=== PATIENT | female | born 1940 | race Caucasian/White ===

== ENCOUNTER 2025-03-10 20:19 | Inpatient (IN) | payer MEDICARE ==
[~2025-03-10] VITALS: Ht 129.5 cm; Wt 62.1 kg
[~2025-03-10 20:19] MED LIST: ATOR40TA71 PO; FERS325 PO; HYDR-4064 PO; LISI20TA24 PO; METO25TA6 PO; PANT40TA54 PO; TRAZ150T79 PO; TROS60CA4 PO
[2025-03-10 20:34] LABS: IMMATURE GRANULOCYTE ABSOLUTE 0.05 K/uL (0-1); NUCLEATED RED BLOOD CELLS 0.0 % (0.0-0.19); PLATELET COUNT (AUTO) 257 K/uL (130-400); RED BLOOD CELL COUNT(AUTO) 3.79 MIL/uL (4.00-5.50); RED CELL DISTRIBUTION WIDTH 12.1 % (11.0-15.5); WHITE BLOOD COUNT (AUTO) 8.3 K/uL (4.8-10.8)
--- NOTE | 2025-03-10 20:40 | ERN ---
ED Note History of Present Illness Stated Complaint: FALL Chief Complaint: Multiple Trauma/Fall Time Seen by MD: 20:22 Dictation: This is an 84-year-old female who apparently was bringing a drink for her and tripped on the chair and had a hard fall on the left side of the head and body onto a pillar. Patient developed a large hematoma of the scalp and temporal area of the face and started feeling dizzy. She stated that there was an indentation in the pillar from the fall. She was complaining of pain on the left side of the head and slight blurriness in the left eye. Patient indicated that she also had laser surgery of the eyes recently Patient is not on any anticoagulation therapy or antiplatelet agents. No loss of consciousness. No other pain or deformities. No facial droop no slurred speech, motor weakness or seizure activity Temperature 98.2 pulse 88 respirations 24 blood pressure 169/116 pulse oximetry 97% on room air Her chronic medical problems include hypertension, hypercholesterolemia, unexplained anemia requiring blood transfusions.(patient indicated that she had extensive workup including capsule endoscopy which did not reveal the source of bleeding.) Trauma alert called-8:22 p.m. Time of patient arrival-8:25 p.m. ED physician involved and time of arrival and evaluation-825 Tier level- 2 [id number] interventions done. Patient just transported by spouse by private vehicle Primary survey- Airway intact patient on room air with pulse oximetry of 98% Breathing-normal breath sounds coarse rhonchi bilaterally Circulation-skin warm, distal pulses 2+, capillary refill less than 2 seconds globally Disability-left parietotemporal area-very large hematoma. No laceration or ecchymosis Pupils equal round reacting to light GCS- E-5 V-4 M-6-15 Motor function-moves all extremities Sensory-no deficits Exposure Allergies: Coded Allergies: quinine (Unverified Allergy, Unknown, 06/21/24) Home Meds Reported Medications Hydrocodone/Acetaminophen (Hydrocodon-Acetaminoph 7.5-325) 7.5 Mg-325 Mg Tablet, 1-2 TAB PO Q4HPRN PRN for pain for 5 Days, #60 TAB 0 Refills 06/21/24 Atorvastatin Calcium (Atorvastatin Calcium) 40 Mg Tablet, 1 TAB PO HS for 30 Days, #30 TAB 0 Refills 06/21/24 Trospium Chloride (Trospium Chloride) 60 Mg Cap.er.24h, 1 CAP PO DAILY for 30 Days, #30 CAP 0 Refills 06/21/24 Ferrous Sulfate (Ferrous Sulfate) 325 Mg (65 Mg Iron) Ectab, 1 TAB PO BID for 30 Days, #60 TAB 0 Refills 06/21/24 Pantoprazole Sodium (Pantoprazole Sodium) 40 Mg Tablet.dr, 1 TAB PO BID for 30 Days, #30 TAB 0 Refills 06/21/24 Trazodone HCl (Trazodone HCl) 150 Mg Tablet, 1 TAB PO HS for 30 Days, #30 TAB 0 Refills 06/21/24 Metoprolol Tartrate (Metoprolol Tartrate) 25 Mg Tablet, 1 TAB PO BID for 30 Days, #60 TAB 0 Refills 06/21/24 Lisinopril (Lisinopril) 20 Mg Tablet, 1 TAB PO DAILY for 30 Days, #30 TAB 0 Refills 06/21/24 Past Medical History Past Medical History: High Cholesterol, Hypertension, Other Additional Past Medical Hx: GI BLEED UNKNOWN CAUSE Surgical History: Other, BTL Surgical History Other: LEFT EAR,HERNIA Social History: ETOH RN Note Reviewed/Agreed w/PFSH: Yes Review of System Dictation Constitutional: Negative for fever,chills, and weight loss Eyes: Negative for injury, pain,redness, and discharge ENT: Negative for injury,pain or swelling Cardiovascular: Negative for chest pain, palpitations, and edema Respiratory: Negative for shortness of breath, cough, and wheezing, Abdomen/GI: Negative for abdominal pain, nausea, vomiting, diarrhea, and constipation Back: Negative for injury and pain : Negative for injury, bleeding and discharge MS/Extremity: Negative for injury and deformity Skin: Negative for rash, and discoloration Neuro: Positive for headache and dizziness, denied weakness, numbness, tingling, and seizure Psych: Negative for suicide ideation, homicidal ideation, and hallucinations Initial Vital Sign VS Vital Signs Date Time Temp Pulse Resp B/P (MAP) Pulse Ox O2 Delivery O2 Flow Rate FiO2 03/10/25 20:20 98.2 88 24 169/116 97 Room Air Physical Exam Dictation Secondary survey Vital signs General well-developed well-nourished Head-normocephalic left temporal area very large hematoma(extending in the parietotemporal and frontal area-at least 8-10 cm by 5 cm) Eyes pupils were equal round reactive to light conjunctiva clear extraocular movements intact no raccoon eyes ENT no schofield sign nares patent, oropharynx clear no fluid in the ear canals. Neck no JVD, midline trachea, no cervical spine tenderness, Heart S1-S2 regular no murmurs rubs or gallops Lungs-clear to auscultation bilaterally Chest chest wall nontender no bruising or deformity noted no flail chest Abdomen-no Bolanos Gonzalez's or Mahesh's sign, soft nontender no rebound or guarding-- Pelvis stable to rock Back-no step-offs or deformities T2 L-spine nontender no perineal hematoma no blood at the meatus Extremities 2+ global pulses, moving all extremities well +5 x 5 muscle strength globally Neurological-cranial nerves 2-12 grossly intact no sensory deficits Rectal-deferred Results (Laboratory/Radiology) Laboratory/Radiology Laboratory Tests Test 03/10/25 20:27 White Blood Count 8.3 K/uL (4.8-10.8) Red Blood Count 3.79 MIL/uL (4.00-5.50) L Hemoglobin 12.5 g/dL (12.0-16.0) Hematocrit 37.7 % (36-48) Mean Corpuscular Volume 99.5 fL (79-99) H Mean Corpuscular Hemoglobin 33.0 pg (27.0-33.0) Mean Corpuscular Hemoglobin Concent 33.2 g/dL (32.0-36.0) Red Cell Distribution Width 12.1 % (11.0-15.5) Platelet Count 257 K/uL (130-400) Mean Platelet Volume 9.7 fL (7.5-10.5) Immature Granulocyte % (Auto) 0.6 % (0-1) Neutrophils (%) (Auto) 59.8 % (40.0-77.0) Lymphocytes (%) (Auto) 22.9 % (21.0-51.0) Monocytes (%) (Auto) 8.6 % (3.0-13.0) Eosinophils (%) (Auto) 6.5 % (0.0-8.0) Basophils (%) (Auto) 1.6 % (0.0-5.0) Neutrophils # (Auto) 5.0 K/uL (1.8-7.7) Lymphocytes # (Auto) 1.9 K/uL (1.0-4.8) Monocytes # (Auto) 0.7 K/uL (0.1-1.0) Eosinophils # (Auto) 0.54 K/uL (0.00-0.70) Basophils # (Auto) 0.13 K/uL (0.00-0.20) Absolute Immature Granulocyte (auto 0.05 K/uL (0-1) Nucleated Red Blood Cells 0.0 % (0.0-0.19) Sodium Level 140 mmol/L (136-145) Potassium Level 3.8 mmol/L (3.5-5.1) Chloride Level 103 mmol/L (101-111) Carbon Dioxide Level 30 mmol/L (21-32) Blood Urea Nitrogen 19 mg/dL (7-18) H Creatinine 1.3 mg/dL (0.5-1.0) H Glomerular Filtration Rate Calc 41 mL/min (>90) Random Glucose 84 mg/dL (70-105) Total Calcium 8.9 mg/dL (8.5-10.1) Total Creatine Kinase 64 U/L (21-232) Troponin I High Sensitivity 7.0 ng/L (4-50) Serum Alcohol < 3 mg/dL (0-10) Labs Reviewed?: Yes EKG Comment: Twelve lead EKG done on 03/10/2025 at 8:46 p.m. showed a heart rate of 72, AR interval 145, QRS duration 78, QT/QTC 383/419 Impression normal sinus rhythm with nonspecific STT wave changes noted. Poor progression of the R-waves. Overall somewhat of a low voltage EKG. EKG rhythm strip shows a normal sinus rhythm with nonspecific ST-T changes. Interpreted by ER MD Dr. Tate X-RAY Comment: REASON: hard fall on the left side ORDERING PHYSICIAN: GALILEA TATE MD PROCEDURE: KNEE 4V LT - KNEE 4+VWS LT EXAM: CR left knee, 3 View. CLINICAL HISTORY: hard fall on the left side COMPARISON: None provided. FINDINGS: Medial compartment predominant mild to moderate tricompartmental left knee joint osteoarthritis. Small knee joint effusion. Prepatellar and infrapatellar bursitis. No displaced fracture is appreciated. IMPRESSION: 1. No acute fracture identified. 2. Mild to moderate tricompartmental left knee osteoarthritis, predominantly in the medial compartment, with small joint effusion and bursitis. /[place] DICTATED BY: LUCIA JENKINS Jr., MD DATE: 03/10/252214 ELECTRONICALLY SIGNED BY: LUCIA JENKINS Jr., MD DATE: 03/10/252214 REASON: hard fall on the left side ORDERING PHYSICIAN: GALILEA TATE MD PROCEDURE: CXR1VW - CHEST 1VW EXAM: CR Chest, 1 View. CLINICAL HISTORY: hard fall on the left side COMPARISON: None provided. FINDINGS: LUNGS: There is no mass, infiltrate, or acute pulmonary abnormality. PLEURAL SPACES: No evidence of pleural effusion or pneumothorax. MEDIASTINUM: The cardiomediastinal silhouette is within normal limits. Moderate hiatal hernia BONES: No acute osseous abnormality. IMPRESSION: No acute cardiopulmonary pathology is evident. /[place] DICTATED BY: NEHEMIAS MCFARLAND MD DATE: 03/10/252213 ELECTRONICALLY SIGNED BY: NEHEMIAS MCFARLAND MD DATE: 0 CT Scan Comment: REASON: fall and large hematoma left side of forehead and temporal area ORDERING PHYSICIAN: GALILEA TATE MD PROCEDURE: C SPIN WO - CT CERVICAL SPINE W/O CONTRAST EXAM: CT Cervical Spine Without IV contrast. CLINICAL HISTORY: fall and large hematoma left side of forehead and temporal area TECHNIQUE: Axial computed tomography images of the cervical spine without intravenous contrast. Sagittal and coronal reformatted images were generated. COMPARISON: None provided. FINDINGS: ALIGNMENT: Bony alignment is anatomic.Straightening of the cervical lordosis, which may represent paraspinal muscle spasm. DEGENERATIVE CHANGES: Multilevel moderate spondylosis as evident by marginal osteophytes, reduction in disc space with associated endplate deformities, and bilateral variable facetal joint arthropathy. Multilevel moderated diffuse disc bulge from C3-C4 through C6-C7 levels in the form of disc osteophyte complex and bilateral uncovertebral joint spurring causing indentation on the anterior thecal sac, moderate narrowing of the bilateral neural foramina, with possible impingement on the exiting nerve roots. SOFT TISSUES: The prevertebral soft tissues are within normal limits. BONES: No acute fracture or aggressive appearing osseous lesion. IMPRESSION: No acute cervical spine abnormality. Multilevel moderate spondylosis as evident by marginal osteophytes, reduction in disc space with associated endplate deformities, and bilateral variable facetal joint arthropathy. Multilevel moderated diffuse disc bulge from C3-C4 through C6-C7 levels in the form of disc osteophyte complex and bilateral uncovertebral joint spurring causing indentation on the anterior thecal sac, moderate narrowing of the bilateral neural foramina, with possible impingement on the exiting nerve roots.Straightening of the cervical lordosis, which may represent paraspinal muscle spasm. Recommended MRI for further evaluation. /[place] DICTATED BY: NEHEMIAS MCFARLAND MD DATE: 03/10/252209 ELECTRONICALLY SIGNED BY: NEHEMIAS MCFARLAND MD DATE: 03/10/252209 REASON: fall and large hematoma left side of forehead and temporal area ORDERING PHYSICIAN: GALILEA TATE MD PROCEDURE: HEAD WO - CT HEAD/BRAIN W/O CONTRAST EXAM: CT Head Without IV contrast. CLINICAL HISTORY: Patient presents after fall with large hematoma over left forehead and temporal region. TECHNIQUE: Axial computed tomography images of the head/brain without intravenous contrast. COMPARISON: None provided. FINDINGS: BRAIN: Diffuse age-related cerebral atrophy with dilatation of the lateral ventricles, prominence of the basal cisterns, cortical sulci, and bilateral sylvian fissures. Ill-defined hypodensities involving bilateral centrum semiovale, waldrop radiata, ganglio-capsular regions, midbrain, and prasad, consistent with chronic small vessel ischemic changes. 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 Focal hypodensity involving the left middle cerebellar peduncle, raises concern for acute ischemic change. No acute hemorrhage, mass lesion, or midline shift. VENTRICLES: No hydrocephalus. ORBITS: Unremarkable. SINUSES AND MASTOIDS: Clear. BONES: No fracture. SOFT TISSUES: Left frontal-parietal pericranial soft tissue contusion with hematoma and associated emphysematous changes. IMPRESSION: Focal hypodensity involving the left middle cerebellar peduncle, raises concern for acute ischemic change. Left frontal-parietal pericranial soft tissue contusion with hematoma and emphysematous changes. Diffuse cerebral atrophy consistent with age-related changes. Chronic small vessel ischemic changes in bilateral centrum semiovale, waldrop radiata, ganglio-capsular regions, midbrain, and prasad. Chronic lacunar infarct in the right ganglio-capsular region. No acute intracranial hemorrhage. Recommended MRI brain for further evaluation. /[place] DICTATED BY: NEHEMIAS MCFARLAND MD DATE: 03/10/252209 ELECTRONICALLY SIGNED BY: NEHEMIAS MCFARLAND MD DATE: 03/10/252209 ED Course ED Course Orders Procedure Category Date Status Time Ondansetron 4mg Inj PHA 03/10/25 Complete (Zofran 4mg Inj) 20:29 Morphine 2mg Syg PHA 03/10/25 Complete (Morphine 2mg Syg) 20:29 Ct Head/Brain W/O CT 03/10/25 Resulted Contrast 20:27 Ct Cervical Spine W/O CT 03/10/25 Resulted Contrast Alcohol, Blood LAB 03/10/25 Complete 20:27 Cardiac Panel LAB 03/10/25 Complete 20:27 Cbc With Differential LAB 03/10/25 Complete 20:27 Basic Metabolic Panel LAB 03/10/25 Complete 20:27 Urinalysis Profile LAB 03/10/25 Logged 20:27 Morphine 2mg Syg PHA 03/10/25 Complete (Morphine 2mg Syg) 20:30 Ondansetron 4mg Inj PHA 03/10/25 Complete (Zofran 4mg Inj) 20:30 0.9%Nacl 1000ml (Ns PHA 03/10/25 In Process 1000ml) 20:30 Chest 1vw RAD 03/10/25 Resulted 20:30 Knee 4+Vws Lt RAD 03/10/25 Resulted 20:30 12 Lead Ekg Tracing- EKG 03/10/25 Complete Technical 20:30 Morphine 2mg Syg PHA 03/10/25 Complete (Morphine 2mg Syg) 22:00 Hydromorphone 0.5mg PHA 03/10/25 Complete Syg (Dilaudid 0.5mg 22:30 Current Medications Medications (Trade) Dose Ordered Sig/Sabrina Route PRN Reason Start Time Stop Time Status Last Admin Dose Admin Hydromorphone HCl (DiLAUDid 0.5MG INJ) 0.5 mg ONCE ONCE IVP 03/10/25 22:30 03/10/25 22:31 DC 03/10/25 22:19 Morphine Sulfate (morPHINE 2MG SYG) 2 mg ONCE ONCE IVP 03/10/25 20:30 03/10/25 20:35 DC 03/10/25 20:30 Morphine Sulfate (morPHINE 2MG SYG) 2 mg ONCE ONCE IVP 03/10/25 22:00 03/10/25 22:01 DC 03/10/25 21:52 Morphine Sulfate (morPHINE 2MG SYG) 2 mg STK-MED ONCE .ROUTE 03/10/25 20:29 03/10/25 20:29 DC Ondansetron HCl (zoFRAN 4MG INJ) 4 mg ONCE ONCE IVP 03/10/25 20:30 03/10/25 20:35 DC 03/10/25 20:30 Ondansetron HCl (zoFRAN 4MG INJ) 4 mg STK-MED ONCE .ROUTE 03/10/25 20:29 03/10/25 20:29 DC Sodium Chloride 1,000 ml @ 125 mls/hr ONCE ONCE IV 03/10/25 20:30 03/11/25 04:29 03/10/25 21:52 Vital Signs Date Time Temp Pulse Resp B/P (MAP) Pulse Ox O2 Delivery O2 Flow Rate FiO2 03/10/25 20:20 98.2 88 24 169/116 97 Room Air We will perform diagnostic labs, advanced imaging and administer medications according to the patient's complaint. Once the results are available, will review and personally interpreted the labs to rule out any acute life- threatening emergency the trach require immediate intervention and treatment. I will then re-evaluate the patient after treatment and diagnostic exams have return to determine whether the patient requires any further testing, can safely be discharged home or need further admission to hospital for additional treatment and evaluation. 8:27 p.m. patient went for scans. Patient has severe headache 9:30 p.m. reviewed all the scans. Large scalp hematoma on the left side with a emphysematous changes noted chronic changes in the cerebrum but no acute hemorrhage noted or skull fractures cervical spine is significant for severe arthritic changes. Patient continues to have a headache 9:[address] Montoya, neurosurgeon about the emphysematous changes in the hematoma and he recommended a follow-up CT in the morning and continue close observation. He should he be notified of the patient's location in the ICU I reviewed all the labs and hemoglobin is 12.5. BUN and creatinine are slightly elevated. I have updated the patient and spouse periodically on available test results and plan of care. I recommended admission to the hospital due to ongoing headache and severe concussion as well as large hematoma. They are agreeable 10:30 p.m. patient accepted by [facility] mid-level provider for [facility] for admission to the intensive care unit for close monitoring of the neurological status. Medical Decision Making MDM Differential diagnosis: Scalp hematoma, contusion, fracture of the skull bones, subdural hematoma, intracranial hemorrhage, multi trauma Rationale: Tests considered and ordered secondary to shared decision making include: labs, ECG and radiology Previous outside records reviewed: Old ER visits. Risk of complication and/or morbidity or mortality of patient management: None Medications-Per medication reconciliation Need for hospitalization: Patient does meet criteria for hospitalization. Need for emergency major/minor surgery: No There are no social concerns with this patient. Prescription drug management Prescriptions will include symptomatic care Patient's prior external medical records from other ER visits were reviewed by me as indicated. Prior testing and results from previous visits were reviewed. Prior tests were taken into account with medical decision making and resource utilization, independent historian/historians were used to obtain complete medical history. I independently interpreted the test that were performed, results were reviewed by me and considered findings on radiology if ordered. Medical management and examination interpretation discussions were had by me with other qualified healthcare professionals as indicated for the patient's care. Problem List Problem List: (1) Fall from standing (2) Closed head injury (3) Left parietal scalp hematoma (4) Concussion (5) Headache (6) Chronic anemia (7) Acute kidney injury Critical Care Note Critical Time: 45 minutes Comment(s) Life-threatening illness; closed head injury, large scalp hematoma, acute kidney injury, severe concussion, headache Risk of morbidity mortality-high Complexity of medical decision making-high (X) high probability of sudden clinically significant deterioration in the patient's condition required the highest level of my preparedness to intervene urgently. I provided critical care services requiring my direct and personal management as noted below; (x) chart data review (x) reviewing nurse's notes and/charts (x) documentation time (x) consultation collaboration on findings and therapy options (x) medication orders and management (x) re-evaluations (x) care, transfer of care, and discharge plans (x) ordering and interpreting studies (x) ordering and reviewing labs (x) obtaining necessary history from family, EMS, prison, private MD, surrogate decision makers because patient was unable to give history due to limitations in the mental status (x) aggregate critical care time was ( 45 ) minutes. This includes only time during which I was engaged in work directly related to the patient's care as described above whether at the bedside or elsewhere in the ER while the patient was critical. My time did not include minutes spent treating any other patients simultaneously or on activities that did not directly contribute to the patient's treatment. It did not include time spent performing other reported procedures or services of residents if any. [facility] WALLSC[facility] DX & DISP Disposition: Inpatient Decision to Admit Time: 21:51 Departure Impression: Primary Impression: Fall from standing Additional Impressions: Closed head injury, Left parietal scalp hematoma, Concussion, Headache, Chronic anemia, Acute kidney injury Condition: Stable Additional Instructions: Patient was informed of all the diagnostic labs and procedures conducted in the emergency room today and demonstrated understanding of the results. I personally reviewed and interpreted all the diagnostic exams performed in the ER today. The patient will be admitted to the hospital for further treatment and evaluation. Disposition-admit to facility Condition-stable/guarded Course-uncertain at this time Pain status-decreased Assessment-exam unchanged Admission Certification- I certify that the patients status is appropriate and is based on my best clinical judgment and the patient's condition as documented in the medical records Referrals: NONE (PCP) GALILEA TATE MD Mar 10, 2025 20:40
[2025-03-10 20:42] LABS: CREATININE 1.3 mg/dL (0.5-1.0); GLOMERULAR FILTR. RATE CALC 41 mL/min (>90); GLUCOSE,RANDOM 84 mg/dL (70-105); SODIUM SERUM 140 mmol/L (136-145); UREA NITROGEN, BLOOD 19 mg/dL (7-18)
[2025-03-10 20:50] LABS: CREATINE KINASE, TOTAL 64 U/L (21-232)
--- NOTE | 2025-03-10 20:50 | EKG ---
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
[2025-03-10 20:52] LABS: ALCOHOL, BLOOD < 3 mg/dL (0-10)
--- NOTE | 2025-03-10 21:10 | HMCIMG ---
EXAM: CT Head Without IV contrast. CLINICAL HISTORY: Patient presents after fall with large hematoma over left forehead and temporal region. TECHNIQUE: Axial computed tomography images of the head/brain without intravenous contrast. COMPARISON: None provided. FINDINGS: BRAIN: Diffuse age-related cerebral atrophy with dilatation of the lateral ventricles, prominence of the basal cisterns, cortical sulci, and bilateral sylvian fissures. Ill-defined hypodensities involving bilateral centrum semiovale, waldrop radiata, ganglio-capsular regions, midbrain, and prasad, consistent with chronic small vessel ischemic changes. 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 Focal hypodensity involving the left middle cerebellar peduncle, raises concern for acute ischemic change. No acute hemorrhage, mass lesion, or midline shift. VENTRICLES: No hydrocephalus. ORBITS: Unremarkable. SINUSES AND MASTOIDS: Clear. BONES: No fracture. SOFT TISSUES: Left frontal-parietal pericranial soft tissue contusion with hematoma and associated emphysematous changes. IMPRESSION: Focal hypodensity involving the left middle cerebellar peduncle, raises concern for acute ischemic change. Left frontal-parietal pericranial soft tissue contusion with hematoma and emphysematous changes. Diffuse cerebral atrophy consistent with age-related changes. Chronic small vessel ischemic changes in bilateral centrum semiovale, waldrop radiata, ganglio-capsular regions, midbrain, and prasad. Chronic lacunar infarct in the right ganglio-capsular region. No acute intracranial hemorrhage. Recommended MRI brain for further evaluation. /[place]
--- NOTE | 2025-03-10 21:12 | HMCIMG ---
EXAM: CT Cervical Spine Without IV contrast. CLINICAL HISTORY: fall and large hematoma left side of forehead and temporal area TECHNIQUE: Axial computed tomography images of the cervical spine without intravenous contrast. Sagittal and coronal reformatted images were generated. COMPARISON: None provided. FINDINGS: ALIGNMENT: Bony alignment is anatomic.Straightening of the cervical lordosis, which may represent paraspinal muscle spasm. DEGENERATIVE CHANGES: Multilevel moderate spondylosis as evident by marginal osteophytes, reduction in disc space with associated endplate deformities, and bilateral variable facetal joint arthropathy. Multilevel moderated diffuse disc bulge from C3-C4 through C6-C7 levels in the form of disc osteophyte complex and bilateral uncovertebral joint spurring causing indentation on the anterior thecal sac, moderate narrowing of the bilateral neural foramina, with possible impingement on the exiting nerve roots. SOFT TISSUES: The prevertebral soft tissues are within normal limits. BONES: No acute fracture or aggressive appearing osseous lesion. IMPRESSION: No acute cervical spine abnormality. Multilevel moderate spondylosis as evident by marginal osteophytes, reduction in disc space with associated endplate deformities, and bilateral variable facetal joint arthropathy. Multilevel moderated diffuse disc bulge from C3-C4 through C6-C7 levels in the form of disc osteophyte complex and bilateral uncovertebral joint spurring causing indentation on the anterior thecal sac, moderate narrowing of the bilateral neural foramina, with possible impingement on the exiting nerve roots.Straightening of the cervical lordosis, which may represent paraspinal muscle spasm. Recommended MRI for further evaluation. /[place]
--- NOTE | 2025-03-10 21:15 | HMCIMG ---
EXAM: CR Chest, 1 View. CLINICAL HISTORY: hard fall on the left side COMPARISON: None provided. FINDINGS: LUNGS: There is no mass, infiltrate, or acute pulmonary abnormality. PLEURAL SPACES: No evidence of pleural effusion or pneumothorax. MEDIASTINUM: The cardiomediastinal silhouette is within normal limits. Moderate hiatal hernia BONES: No acute osseous abnormality. IMPRESSION: No acute cardiopulmonary pathology is evident. /[place]
--- NOTE | 2025-03-10 21:16 | HMCIMG ---
EXAM: CR left knee, 3 View. CLINICAL HISTORY: hard fall on the left side COMPARISON: None provided. FINDINGS: Medial compartment predominant mild to moderate tricompartmental left knee joint osteoarthritis. Small knee joint effusion. Prepatellar and infrapatellar bursitis. No displaced fracture is appreciated. IMPRESSION: 1. No acute fracture identified. 2. Mild to moderate tricompartmental left knee osteoarthritis, predominantly in the medial compartment, with small joint effusion and bursitis. /[place]
[2025-03-10] MEDS: 0.9%NACL 1000ML 1,000 ML IV ONE (21:52)
--- NOTE | 2025-03-10 22:20 | HP ---
[facility] H[facility]ORY [facility] PHYS[facility] Date of Service: Mar 10, 2025 Time of Service: 22:18 PCP: Self-referral HISTORY OF PRESENT ILLNESS: This is an 84-year-old female with past medical history of anemia,hyperlipidemia and hypertension who presents to the ED for complaints of headache and dizziness following a fall injury at home .As per patient she was tripped over a chair,from a standing position and fell forward mostly on her left side hitting a pole on her left side of the head and left knee as well.Patient sustained a large hematoma on her left side of the head .Patient reports headache around where hematoma is located ,left eye blurry vision and felt dizzy as well .Patient also reports she has recent bilateral eye laser surgery.Patient denies taking any blood thinner and antiplatelet medication.Patient denies loss of consciousness ,facial droop,motor weakness and seizure activity.Patient reports she was admitted last May of 2024 and underwent a capsule endoscopy and was not able to find the source of bleeding but she received blood transfusion she said.Patient was a trauma alert from ER . Seen and examined patient in the ED awake,alert and coherent,able to follow commands and move all extremities.Patient denies fever,nausea,vomiting,chest pain,neck pain,back pain,palpitation cough ,shortness of breath and abdominal pain.Patient is on torsten hugger. Latest vital signs temperature 98.1, heart rate 75, blood pressure 127/64, saturation 97% on 2 L nasal cannula . Labs: WBC 8, hemoglobin 12, hematocrit 37 platelet count 257. BUN 19, creatinine 1.3, GFR 41 , troponin seven the rest of the chemistries normal. Serum alcohol less than three. Left knee x-ray result revealed no acute fracture. [id number] tricompartmental left knee osteoarthritis, predominantly in the medial compartment with small joint effusion and bursitis. Chest x-ray is unremarkable. CT head without contrast result revealed focal hypodensity involving the left middle cerebellar peduncle, raises concern for acute ischemic change. Left frontal parietal pericranial soft tissue contusion with hematoma and emphysematous changes. Diffuse cerebral atrophy consistent with age related changes. Chronic small-vessel ischemic changes in bilateral centrum semiovale, waldrop radiata, ganglio-capsular regions, midbrain and prasad. Chronic lacunar infarct in the right ganglia capsular region. No acute intracranial hemorrhage. CT cervical spine without contrast result revealed multilevel moderate spondylosis as evident by marginal S osteophytes, reduction in the disc space with associated endplate deformities and bilateral veranda variable facetal joint arthropathy. Multilevel moderated diffuse disc bulge from C3-C4 through C6-C7 levels in the form of disc osteophyte complex and bilateral uncovertebral joint spurring causing indentation on the anterior thecal sac moderate narrowing of the bilateral neural foramina with possible impingement on the exiting nerve roots. Straightening of the cervical lordosis which may represent paraspinal muscle spasm. While in the ER patient received Zofran 4 mg IV, morphine 2 mg IV and started on NS at 125 mL/hour. As per ER doctor Lea,she already consulted and notified the neurosurgeon Dr Thibodeaux who accepted and agreed to see the patient ,will admit patient for further medical management. REVIEW OF SYSTEMS CONSTITUTIONAL: Complaints of chills Denies fevers, night sweats. No unintentional weight loss reported. NEUROLOGICAL: Complains of headache and dizziness Denies amaurosis fugax, motor weakness, sensory deficit, gait abnormalities, or tremors. ENT: No hearing loss, otalgia, otorrhea, rhinitis, rhinorrhea, hoarseness, or sore throat. CARDIOVASCULAR: Denies any exertional angina, dyspnea on exertion, orthopnea, paroxysmal nocturnal dyspnea, palpitations, life-threatening arrhythmias, claudication. PULMONARY: Denies any shortness of breath, cough, phlegm/sputum, hemoptysis, pleuritic chest pain. SLEEP: Denies morning headaches, daytime somnolence or napping. Denies difficu lty falling asleep, staying asleep, waking from sleep. Denies knowledge of snoring. GASTROINTESTINAL: Denies any type of dysphagia to either liquids or solids. Denies nausea, vomiting, pyrosis, early satiety, abdominal pain, diarrhea, constipation, or changes in stool consistency or caliber. Denies coffee-ground emesis, hematemesis, hematochezia, or melanotic stools. GENITOURINARY: Denies frequency, urgency, nocturia, hematuria or incontinence (Storage/Irritative symptoms.) Low urinary stream, straining to void, urinary intermittency or hesitancy, splitting of the voiding stream, terminal dribbling. ENDOCRINOLOGIC: Denies polyuria, polydipsia, polyphagia or heat/cold intol erances. HEMATOLOGIC: Denies thrombophilia/previous clots, or coagulopathy/bleeding disorders. ONCOLOGIC: Denies personal history of malignancy. DERMATOLOGIC: Denies rashes or pruritus. PSYCHIATRIC: Denies any suicidal or homicidal ideation. Denies hallucinations. PAST MEDICAL HISTORY: [ Anemia, hyperlipidemia and hypertension ] PAST SURGICAL HISTORY: [ Bilateral eye laser surgery, hemorrhoidectomy, left ear surgery hernia repair x3 BTL and tonsillectomy] PAST SOCIAL HISTORY: [Patient lives with . Patient denies alcohol tobacco and recreational drug use ] FAMILY HISTORY: [ Hypertension, stroke, Chronic obstructive pulmonary disease, cancer and Alzheimer's disease ] Coded Allergies: quinine (Unverified Allergy, Unknown, 06/21/24) PHYSICAL EXAM GENERAL APPEARANCE: The patient is awake, alert, and oriented, in no acute cardiopulmonary distress. NEUROLOGICAL: Cranial nerves II-XII grossly intact. Motor is 5/5 in bilateral upper and lower extremities proximal to distal. No sensory deficits. HEENT: Face is symmetric. Pupils are equal and reactive. Extraocular movements are intact. NECK: Supple. No JVD. No thyromegaly. No submental, submandibular, pre- /postauricular, occipital or supraclavicular lymphadenopathy. CHEST: Normal chest expansion. No Telemetry. LUNGS: Absence of any rales, rhonchi or any wheezing. CARDIOVASCULAR: Regular. S1 and S2 normal. No appreciable rubs, murmurs or gallops. ABDOMEN: Soft, nontender, and nondistended. There is no rebound, voluntary guarding, or rigidity. : Deferred. No Galvez. EXTREMITIES: Non-edematous and not cyanotic. No clubbing. Good capillary refill. SKIN: Hematoma to left side of the head Vital Sign (Last 24 Hours) 03/10/25 20:20 Temp 98.2 Pulse 88 Resp 24 B/P (MAP) 169/116 Pulse Ox 97 O2 Delivery Room Air LABS: Laboratory: Test 03/10/25 20:27 Range/Units White Blood Count 8.3 4.8-10.8 K/uL Red Blood Count 3.79 L 4.00-5.50 MIL/uL Hemoglobin 12.5 12.0-16.0 g/dL Hematocrit 37.7 36-48 % Mean Corpuscular Volume 99.5 H 79-99 fL Mean Corpuscular Hemoglobin 33.0 27.0-33.0 pg Mean Corpuscular Hemoglobin Concent 33.2 32.0-36.0 g/dL Red Cell Distribution Width 12.1 11.0-15.5 % Platelet Count 257 130-400 K/uL Mean Platelet Volume 9.7 7.5-10.5 fL Immature Granulocyte % (Auto) 0.6 0-1 % Neutrophils (%) (Auto) 59.8 40.0-77.0 % Lymphocytes (%) (Auto) 22.9 21.0-51.0 % Monocytes (%) (Auto) 8.6 3.0-13.0 % Eosinophils (%) (Auto) 6.5 0.0-8.0 % Basophils (%) (Auto) 1.6 0.0-5.0 % Neutrophils # (Auto) 5.0 1.8-7.7 K/uL Lymphocytes # (Auto) 1.9 1.0-4.8 K/uL Monocytes # (Auto) 0.7 0.1-1.0 K/uL Eosinophils # (Auto) 0.54 0.00-0.70 K/uL Basophils # (Auto) 0.13 0.00-0.20 K/uL Absolute Immature Granulocyte (auto 0.05 0-1 K/uL Nucleated Red Blood Cells 0.0 0.0-0.19 % Sodium Level 140 136-145 mmol/L Potassium Level 3.8 3.5-5.1 mmol/L Chloride Level 103 101-111 mmol/L Carbon Dioxide Level 30 21-32 mmol/L Blood Urea Nitrogen 19 H 7-18 mg/dL Creatinine 1.3 H 0.5-1.0 mg/dL Glomerular Filtration Rate Calc 41 >90 mL/min Random Glucose 84 70-105 mg/dL Total Calcium 8.9 8.5-10.1 mg/dL Total Creatine Kinase 64 21-232 U/L Troponin I High Sensitivity 7.0 4-50 ng/L Serum Alcohol < 3 0-10 mg/dL DIAGNOSTICS / RADIOLOGY: [ ] ASSESSMENT: Status post mechanical fall injury POA Closed head injury POA Left parietal scalp hematoma POA Headache POA Chronic anemia POA Acute kidney injury POA Left knee pain Left middle cerebellar peduncle concern for acute ischemic change per CT POA Left frontal parietal pericranial soft tissue contusion with hematoma and emphysema toes changes per CT POA Hypertension POA Hyperlipidemia POA PLAN: We will admit patient in ICU for close monitoring We will start on clear liquid diet advanced as tolerated We will start NS @ 75 ml / hr x2 bags and re evaluate We will start up famotidine 20 mg IV daily for GI prophylaxis We will replace electrolytes as needed per protocol We will add prn medication for fever,pain,cough , nausea and vomiting We will reconcile home meds once medlist available We will request for hourly neuro check per nursing NIHS score Q shift and p.r.n. Fall precaution We will request for case management service We will request for critical care consultation We will request for neurosurgery consultation We will request for neurology consultation We will request labs in am We will obtain CT head in am We will follow up urinalysis result Further orders to follow depending on above results Case discussed with attending physician and came up with above treatment and plan of care. ADVANCED CARE PLANNING 1. Which of the following were discussed? Hospice Care - No Therapeutic options - Yes Advance Directives - No Other discussions - 2. Discussed with who? Patient follow 3. Voluntary nature of this service was explained to the patient? Yes 4. Amount of time spent - _25 min ____ 5. Reviewed by Physician? (if this service was performed by NPP) Yes Patient seen and examined by me. Agree with note by PROGRAM DIR SEE ADDITIONAL ORDERS PER CHART DISCUSSED WITH NURSING STAFF MARCELA VAN CARDIOPULMONARY PHYSICAL THERAPIST Mar 10, 2025 22:20
[2025-03-11] VITALS (35 sets, daily range): BP systolic 102–165; BP diastolic 59–119; PULSE 58–78; RESP 12–29; TEMP 97.6–98.1; O2SAT 96–98
[2025-03-11] MEDS ORDERED: PoTASSium chloRIDE 20MEQ ER 20 MEQ ERTAB PO PRN (00:30)
[2025-03-11] MEDS ORDERED: PoTASSium chl 10% ELIXIR 20MEQ 20 MEQ/15 ML UDCUP PO PRN (00:30)
--- NOTE | 2025-03-11 00:44 | CONS ---
[facility] CONSULTATION NOTE Date Patient Seen: Mar 11, 2025 Time of Visit: 0145 Supervising Physician: [Dr. Peyman Torres ] Reason for Consultation: [ICU consult ] Primary Care Physician: [Dr. Pino ] Outpatient Specialists: [ ] Inpatient Consults: [Dr. Thibodeaux-neurosurgery, [facility] team-ICU, Dr. Guerra-neuro ] PROBLEM LIST: Left frontal-parietal pericranial soft tissue contusion with hematoma -POA Traumatic fall-POA Suspected ischemic stroke-POA; left middle cerebellar peduncle Small joint effusion and bursitis on the left knee-POA Osteoarthritis of the left knee-POA MALENA-POA Primary HTN PLAN: -Continue critical care management -Repeat head CT in am -Obtain head MRI in am -2decho in am -Stroke risk stratification: TSH, lipid panel and HgA1c -Continue neurochecks q1H -Neuro and neurosurgery on-board, appreciate recommendation -Keep SBP between 150-160 -IV fluids for hydration -The rest of medical management per primary team HPI: [Per hospitalist MEDICAL INSURANCE CODING SPECIALIST's notes: "This is an 84-year-old female with past medical hi story of anemia,hyperlipidemia and hypertension who presents to the ED for complaints of headache and dizziness following a fall injury at home .As per patient she was tripped over a chair,from a standing position and fell forward mostly on her left side hitting a pole on her left side of the head and left knee as well.Patient sustained a large hematoma on her left side of the head .Patient reports headache around where hematoma is located ,left eye blurry vision and felt dizzy as well .Patient also reports she has recent bilateral eye laser surgery.Patient denies taking any blood thinner and antiplatelet medication.Patient denies loss of consciousness ,facial droop,motor weakness and seizure activity.Patient reports she was admitted last May of 2024 and underwent a capsule endoscopy and was not able to find the source of bleeding but she received blood transfusion she said.Patient was a trauma alert from ER .Seen and examined patient in the ED awake,alert and coherent,able to follow commands and move all extremities.Patient denies fever,nausea,vomiting,chest pain,neck pain,back pain,palpitation cough ,shortness of breath and abdominal pain.Patient is on torsten hugger." [facility] team was consulted in the setting of traumatic fall resulting to pericranial hematoma 2/2 traumatic fall and suspected ischemic stroke requiring ICU admission. Neurosurgeon, Dr. Thibodeaux was consulted by the hospitalist team and requested close monitoring in the critical care setting. At the time of my assessment, patient is resting comfortably on the bed, denies pain or discomfort, hemodynamically stable and in no acute distress. She denies syncopal event and claims that everything was a result of unfortunate accident and that she only had a sip of rum and coke. Negative for focal neurologic deficits with a very pleasant personality and a good sense of humor. Pupils PERRLA, able to move all of extremities without paresthesia, negative for aphasia or dysarthria and she remains coherent and oriented x4. We will continue to follow patient's neurologic condition and to keep SBP between 150s-160's. On behalf of [facility] team, thank you for the opportunity to participate in the patient's care. PAST MEDICAL HX: see above PAST SURGICAL HX: noncontributory SOCIAL HISTORY: No tobacco, ETOH, or illicit drug use Coded Allergies: quinine (Unverified Allergy, Unknown, 06/21/24) REVIEW OF SYSTEMS: 12 point ROS reviewed with patient. Pertinent positives mentioned above. Otherwise negative. PHYSICAL EXAM: GENERAL: alert, awake oriented x 3 HEENT: PERRLA, EOMI, Sclera non icteric, moist mucosa, left forehead hematoma NECK: Supple, no JVD, trachea midline LUNGS: Clear breath sounds bilaterally. No wheezes HEART: Regular rate and rhythm. Normal S1 and S2, without murmurs ABD: Abdomen soft, nontender. Bowel sounds present EXT: No clubbing cyanosis or edema, left knee hematoma NEURO: Alert and oriented to person, follows commands Vital Signs (last 8hr) Date Time Temp Pulse Resp B/P (MAP) Pulse Ox O2 Delivery O2 Flow Rate FiO2 03/10/25 23:30 98.1 75 15 127/64 97 Room Air* 0 21 03/10/25 22:30 98.1 58 17 139/86 95 Room Air* 0 21 03/10/25 21:30 97.9 68 16 149/70 95 Room Air* 0 21 03/10/25 20:25 98.1 78 20 205/108 97 Room Air* 0 21 03/10/25 20:20 98.2 88 24 169/116 97 Room Air LABS: Hematology Labs: Test 03/10/25 20:27 Range/Units White Blood Count 8.3 4.8-10.8 K/uL Red Blood Count 3.79 L 4.00-5.50 MIL/uL Hemoglobin 12.5 12.0-16.0 g/dL Hematocrit 37.7 36-48 % Mean Corpuscular Volume 99.5 H 79-99 fL Mean Corpuscular Hemoglobin 33.0 27.0-33.0 pg Mean Corpuscular Hemoglobin Concent 33.2 32.0-36.0 g/dL Red Cell Distribution Width 12.1 11.0-15.5 % Platelet Count 257 130-400 K/uL Mean Platelet Volume 9.7 7.5-10.5 fL Immature Granulocyte % (Auto) 0.6 0-1 % Neutrophils (%) (Auto) 59.8 40.0-77.0 % Lymphocytes (%) (Auto) 22.9 21.0-51.0 % Monocytes (%) (Auto) 8.6 3.0-13.0 % Eosinophils (%) (Auto) 6.5 0.0-8.0 % Basophils (%) (Auto) 1.6 0.0-5.0 % Neutrophils # (Auto) 5.0 1.8-7.7 K/uL Lymphocytes # (Auto) 1.9 1.0-4.8 K/uL Monocytes # (Auto) 0.7 0.1-1.0 K/uL Eosinophils # (Auto) 0.54 0.00-0.70 K/uL Basophils # (Auto) 0.13 0.00-0.20 K/uL Absolute Immature Granulocyte (auto 0.05 0-1 K/uL Nucleated Red Blood Cells 0.0 0.0-0.19 % Chemistry Labs: Test 03/10/25 20:27 Range/Units Sodium Level 140 136-145 mmol/L Potassium Level 3.8 3.5-5.1 mmol/L Chloride Level 103 101-111 mmol/L Carbon Dioxide Level 30 21-32 mmol/L Blood Urea Nitrogen 19 H 7-18 mg/dL Creatinine 1.3 H 0.5-1.0 mg/dL Glomerular Filtration Rate Calc 41 >90 mL/min Random Glucose 84 70-105 mg/dL Total Calcium 8.9 8.5-10.1 mg/dL Total Creatine Kinase 64 21-232 U/L Troponin I High Sensitivity 7.0 4-50 ng/L DIAGNOSTICS / RADIOLOGY RESULTS: [ ] PLAN NEURO: Minimize central acting medications as possible. Fall Precautions. Well lighted room through the day and minimize interruptions through the night to prevent acute delirium. PULMONARY: Supplemental 02 as needed Titrate Fio2 to keep Spo2 > or = 90% DuoNebs and CPT as needed IS hourly while awake for pulmonary hygiene Out of bed to chair as tolerated CARDIOVASCULAR: Follow hemodynamics. Titrate vasopressor to keep MAP >65 or systolic blood pressure >95mmHg DRIPS: [None ] LINES: [ ] GI & NUTRITION: Continue nutritional support Aspirations precautions Prokinetic agents and laxatives as needed KIDNEYS & ELECTROLYTES: Strict monitoring of intake and output Daily weights Avoid nephrotoxic agents Monitor electrolytes and replace as needed Goal urine output of 30mL/hr or 0.5mL/kg/hr Urine output: [ ] Fluid Balance: [ ] ENDOCRINE: Maintain blood glucose between 100-180 at all times. Insulin sliding scale for blood glucose management INFECTIOUS DISEASE: Trend temperature. Sherwood-culture if febrile. Micro: [ ] Antibiotics: [ ] HEMATOLOGY & COAGULATION: Monitor H&H. Keep Hgb > 7 Transfuse 1 unit of PRBC for Hgb < 7 Transfuse 1 pack of platelets of platelets < 20, 000 Watch for any signs and symptoms of bleeding SKIN: Pressure ulcer prevention per facility protocol Rehab: PT/OT Prophylaxis: GI: [Pepcid ] DVT: [SCD, no AC due to hematoma ] Code Status: Full Resuscitation Disposition: [Admit to ICU] Other: Total patient care time: 35 minutes RON RANGEL Mar 11, 2025 00:44
[2025-03-11 01:43] LABS: ADD UA MICROSCOPIC YES; APPEARANCE,URINE CLEAR (CLEAR); GLUCOSE, URINE (UA) NEGATIVE (NEGATIVE); LEUKOCYTE ESTERASE ,URINE 250 Leu/uL (NEGATIVE); NITRATE,URINE NEGATIVE (NEGATIVE); OCCULT BLOOD,URINE NEGATIVE (NEGATIVE)
[2025-03-11 01:45] LABS: SQUAMOUS EPITHELIAL CELL,UR RARE /HPF (0-2)
[2025-03-11] MEDS: 0.9%NACL 1000ML 1,000 ML IV SCH (02:45)
[2025-03-11 04:53] LABS: IMMATURE GRANULOCYTE ABSOLUTE 0.04 K/uL (0-1); NUCLEATED RED BLOOD CELLS 0.0 % (0.0-0.19); PLATELET COUNT (AUTO) 220 K/uL (130-400); RED BLOOD CELL COUNT(AUTO) 3.21 MIL/uL (4.00-5.50); RED CELL DISTRIBUTION WIDTH 12.1 % (11.0-15.5); WHITE BLOOD COUNT (AUTO) 7.9 K/uL (4.8-10.8)
[2025-03-11 05:23] LABS: ASPARTATE AMINOTRANSFERASE 17.0 U/L (10-37); CREATININE 1.3 mg/dL (0.5-1.0); GLOMERULAR FILTR. RATE CALC 41.0 mL/min (>90); GLUCOSE,RANDOM 94.0 mg/dL (70-105); LDL DIRECT 42.0 mg/dL (0-99); SODIUM SERUM 141.0 mmol/L (136-145); TOTAL PROTEIN, SERUM 5.5 g/dL (6.0-8.3); UREA NITROGEN, BLOOD 18.0 mg/dL (7-18)
--- NOTE | 2025-03-11 09:01 | PN ---
[facility] PROGRESS NOTE Date Patient Seen: Mar 11, 2025 Time of Visit: 09:01 Supervising Physician: Dr. Peyman Torres Primary Care Physician: [Dr. Pino ] Outpatient Specialists: Inpatient Consults: [Dr. Thibodeaux-neurosurgery, [facility] team-ICU, Dr. Guerra-neuro ] PROBLEM LIST: Left frontal-parietal pericranial soft tissue contusion with hematoma, POA, improved per repeat CT head, s/p traumatic fall-POA Stable chronic ischemic and atrophic changes, per CT on 03/11/25 Small joint effusion and bursitis on the left knee-POA Osteoarthritis of the left knee-POA Left knee pain s/p fall ELSA-POA Primary HTN INTERVAL HISTORY: Ms. Hanna is an 84 year old female who presented on 03/10/25 for evaluation of headack and dizziness s/p trip and fall. She reported she hit her left side of her head with a pole. The patient was admitteed by the [facility] team with the diagnosis of fall from standing, closedf head injury, left parietal scalp h ematoma, concussion, headache, chronic anemia, elsa. [facility] team was consulted for critical care management. I assessed the patient at bedside in 208 along with my supervising physician Dr. Torres. The patient appeared comfortable, NIH 0. Reported pain above the left eyebrow. Echo: LVEF is 55-60%. 3D volume EF 59%. Repeat CT of head and brain this am on 03/11/25: IMPRESSION: .6 x 2.2 x 1.0 cm left frontal-parietal hematoma which is decreased in size when compared with the prior exam (previously 5.1 x 3.0 x 1.7 cm). No acute intracranial abnormality. Stable chronic ischemic and atrophic changes. Dr. Guerra, neurologist has seen the patient and reviewed the repeat CT. Dr. Guerra reported that further action, no need for MRI, unless would like one, the hematoma is superficial parietal hematoma. Pending neurosurgery to see the patient. I reevaluated the patient and the patient was seen by my supervising physician. REVIEW OF SYSTEMS: 12 point ROS reviewed with patient. Pertinent positives mentioned above. Otherwise negative. PHYSICAL EXAM: GENERAL: Alert, awake oriented x 3 HEENT: PERRLA, EOMI, Sclera non icteric, moist mucosa, left forehead hematoma NECK: Supple, no JVD, trachea midline LUNGS: Clear breath sounds bilaterally. No wheezes HEART: Regular rate and rhythm. Normal S1 and S2, without murmurs ABD: Abdomen soft, nontender. Bowel sounds present EXT: No clubbing cyanosis or edema, left knee hematoma NEURO: Alert and oriented X3, follows commands, speech is clean, NIH 0 Vital Signs (last 8hr) Date Time Temp Pulse Resp B/P (MAP) Pulse Ox O2 Delivery O2 Flow Rate FiO2 03/11/25 08:00 97.9 65 18 145/87 97 Room Air 03/11/25 07:00 62 12 138/71 92 Room Air 21 03/11/25 06:40 68 25 140/74 95 03/11/25 06:10 66 21 133/74 92 Room Air 03/11/25 06:00 96 Room Air* 0 21 03/11/25 05:44 63 29 161/82 97 Room Air 03/11/25 05:10 97.5 61 13 110/60 95 Room Air 03/11/25 04:55 58 14 104/62 95 Room Air 03/11/25 04:40 78 16 109/61 93 Room Air 03/11/25 04:25 63 15 119/60 93 Room Air 03/11/25 04:10 63 16 119/59 94 Room Air 03/11/25 03:55 63 18 121/64 92 Room Air 03/11/25 03:40 68 15 125/79 97 Room Air 03/11/25 03:25 65 12 102/62 94 Room Air 03/11/25 03:10 63 16 117/65 94 Room Air 03/11/25 02:55 64 18 112/62 91 Room Air 03/11/25 02:40 63 21 121/69 84 Room Air 03/11/25 02:25 62 23 135/71 93 Room Air 03/11/25 02:10 65 25 141/70 96 Room Air 03/11/25 01:58 96 Room Air* 0 21 03/11/25 01:55 97.9 72 12 134/72 96 Room Air 03/11/25 01:28 98.4 69 20 119/66 95 Room Air* 0 21 LABS: Hematology Labs: Test 03/11/25 04:01 Range/Units White Blood Count 7.9 4.8-10.8 K/uL Red Blood Count 3.21 L 4.00-5.50 MIL/uL Hemoglobin 10.5 L 12.0-16.0 g/dL Hematocrit 32.2 L 36-48 % Mean Corpuscular Volume 100.3 H 79-99 fL Mean Corpuscular Hemoglobin 32.7 27.0-33.0 pg Mean Corpuscular Hemoglobin Concent 32.6 32.0-36.0 g/dL Red Cell Distribution Width 12.1 11.0-15.5 % Platelet Count 220 130-400 K/uL Mean Platelet Volume 9.8 7.5-10.5 fL Immature Granulocyte % (Auto) 0.5 0-1 % Neutrophils (%) (Auto) 66.3 40.0-77.0 % Lymphocytes (%) (Auto) 18.1 L 21.0-51.0 % Monocytes (%) (Auto) 7.3 3.0-13.0 % Eosinophils (%) (Auto) 6.2 0.0-8.0 % Basophils (%) (Auto) 1.6 0.0-5.0 % Neutrophils # (Auto) 5.2 1.8-7.7 K/uL Lymphocytes # (Auto) 1.4 1.0-4.8 K/uL Monocytes # (Auto) 0.6 0.1-1.0 K/uL Eosinophils # (Auto) 0.49 0.00-0.70 K/uL Basophils # (Auto) 0.13 0.00-0.20 K/uL Absolute Immature Granulocyte (auto 0.04 0-1 K/uL Nucleated Red Blood Cells 0.0 0.0-0.19 % Chemistry Labs: Test 03/11/25 04:01 03/10/25 20:27 Range/Units Sodium Level 141 136-145 mmol/L Potassium Level 4.1 3.5-5.1 mmol/L Chloride Level 109 101-111 mmol/L Carbon Dioxide Level 26 21-32 mmol/L Blood Urea Nitrogen 18 7-18 mg/dL Creatinine 1.3 H 0.5-1.0 mg/dL Glomerular Filtration Rate Calc 41 >90 mL/min Random Glucose 94 70-105 mg/dL Hemoglobin A1c 5.8 4.0-6.0 % Estimated Average Glucose (eAG) 120 70-126 mg/dL Total Calcium 7.9 L 8.5-10.1 mg/dL Magnesium Level 1.80 1.80-2.40 mg/dL Total Bilirubin 0.2 0.2-1.0 mg/dL Aspartate Amino Transf (AST/SGOT) 17 10-37 U/L Alanine Aminotransferase (ALT/SGPT) 16 12-78 U/L Alkaline Phosphatase 56 50-136 U/L Total Protein 5.5 L 6.0-8.3 g/dL Albumin 2.8 L 3.5-5.0 g/dL Triglycerides Level 210 H 30-200 mg/dL Cholesterol Level 118 <200 mg/dL LDL Cholesterol 42 0-99 mg/dL HDL Cholesterol 39 35-85 mg/dL Thyroid Stimulating Hormone (TSH) 2.20 0.36-3.74 uIU/mL Total Creatine Kinase 64 21-232 U/L Troponin I High Sensitivity 7.0 4-50 ng/L DIAGNOSTICS / RADIOLOGY RESULTS: [ ] PLAN -The patient was admitted to the ICU with continuous telemetry monitoring. -Downgrade the patient to medical floor with tele monitoring. -Neurological checks every 4 hours and as needed. -No blood thinners for now. -Atorvastatin 40 mg p.o. daily. -V/S Q4H. -Systolic blood pressure between 120 to 160 to maintain adequate brain perfusion. -Patient passes dysphagia screen by nurse. -Neurology and neurosurgeon are aware of the patient. -Glucometer checks before meals and at bedtime with regular insulin sliding scale as needed -Education on diabetic/low fat diet. -PT/OT evaluation. -PRN medications for pain, N/V, constipation, fever, hypertension -AM labs. -Monitor renal and liver function -Monitor electrolytes and treat accordingly PRN -GI and DVT prophylaxis. -Further plan/orders per hospitalization course. NEURO: Minimize central acting medications as possible. Fall Precautions. Well lighted room through the day and minimize interruptions through the night to prevent acute delirium. PULMONARY: Supplemental 02 as needed Titrate Fio2 to keep Spo2 > or = 90% DuoNebs and CPT as needed IS hourly while awake for pulmonary hygiene Out of bed to chair as tolerated CARDIOVASCULAR: Follow hemodynamics. Titrate vasopressor to keep MAP >65 or systolic blood pressure >95mmHg GI & NUTRITION: Continue nutritional support Aspirations precautions Prokinetic agents and laxatives as needed KIDNEYS & ELECTROLYTES: Strict monitoring of intake and output Daily weights Avoid nephrotoxic agents Monitor electrolytes and replace as needed Goal urine output of 30mL/hr or 0.5mL/kg/hr ENDOCRINE: Maintain blood glucose between 100-180 at all times. Insulin sliding scale for blood glucose management INFECTIOUS DISEASE: Trend temperature. Sherwood-culture if febrile. HEMATOLOGY & COAGULATION: Monitor H&H. Keep Hgb > 7 Transfuse 1 unit of PRBC for Hgb < 7 Transfuse 1 pack of platelets of platelets < 20, 000 Watch for any signs and symptoms of bleeding SKIN: Pressure ulcer prevention per facility protocol Rehab: PT/OT Prophylaxis: GI: [Pepcid ] DVT: [SCD, No AC due to hematoma ] Code Status: Full Resuscitation Disposition: [Admit to ICU] Other: Total patient critical care time: 45 minutes ATTESTATION BY PHYSICIAN The patient has been seen and evaluated, the case has been discussed with the [employer] MACHINE OPERATOR, I agree with the clinical findings and plan of care. Peyman Torres MD, LUCIA M [employer] CH[employer] TECHNICIAN Mar 11, 2025 09:01
--- NOTE | 2025-03-11 09:13 | HMCIMG ---
EXAM: CT Head Without IV contrast. CLINICAL HISTORY: Fall. Follow up hematoma over left forehead and temporal region. TECHNIQUE: Axial computed tomography images of the head/brain without intravenous contrast. COMPARISON: 03/10/2025 FINDINGS: BRAIN: Stable chronic ischemic and atrophic changes. 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 No acute infarct, hemorrhage, mass lesion, or midline shift. VENTRICLES: No hydrocephalus. ORBITS: Unremarkable. SINUSES AND MASTOIDS: Clear. BONES: No fracture. SOFT TISSUES: 4.6 x 2.2 x 1.0 cm left frontal-parietal hematoma which is decreased in size when compared with the prior exam (previously 5.1 x 3.0 x 1.7 cm). IMPRESSION: 4.6 x 2.2 x 1.0 cm left frontal-parietal hematoma which is decreased in size when compared with the prior exam (previously 5.1 x 3.0 x 1.7 cm). No acute intracranial abnormality. Stable chronic ischemic and atrophic changes. /Levan
[2025-03-11] MEDS: MAGNESIUM 2GM PREMIX 50ML 50 ML IV PRN (10:44)
[2025-03-11] MEDS: FAMOTIDINE 20MG VIAL IV SCH (10:44)
[2025-03-11] MEDS ORDERED: ARTIFICAL TEARS SOL 15 ML OU PRN (11:00)
--- NOTE | 2025-03-11 11:20 | HMCSR ---
APPROVED REPORT EXAM: Two-dimensional and M-mode echocardiogram with Doppler and color Doppler. INDICATION ICD: CVA 2D Dimensions RVDd3.3 cmLVEF(%)57.0 (>50%)LA ESV INDEX (BP)36.14 mL/m2 IVSd0.9 (0.7-1.1cm)FS(%)29 % LVDd3.8 (3.8-5.6cm)LA (2D)4.6 (1.6-4.0cm) PWd0.9 (0.7-1.1cm)Ao Root(2D)2.4 (2.0-3.7cm) IVSs1.1 cmLVOT diam1.8 (1.8-2.4cm) LVDs2.7 (2.5-4.0cm) PWs1.1 cm Deformation Strain Apical 4-22.5 % Apical 2-19.5 % Apical 3-20.0 % Global Strain-20.7 % M-Mode Dimensions EPSS0.3 cm LA (MM)4.9 (1.6-4.0cm) Ao Root(MM)3.4 (2.0-3.7cm) Aortic Valve AoV Vmax1.4 m/Julieth Peak GR8.2 mmHgLVOT Vmax1.1 m/s AoV VTI0.3 mAo Mean GR4.9 mmHgLVOT VTI0.24 m THAO (VMAX)2.03 cm2AVA (VTI) 1.9 cm2 Mitral Valve MV E Vmax98.1 cm/sDECEL Aeog647 ms MV A Vmax78.8 cm/sP 1/2 T56 ms E/A ratio1.2MVA (PHT)3.9 cm2 TDI E/E' [id number]/E' Nceyumd53.2 Medial E' Peak V6.79 cm/sLateral E' Peak V9.58 cm/s Pulmonary Valve PV Vmax1.0 m/sPV VTI0.21 mPV Mean GR2.0 mmHg PV Peak GR4.4 mmHg Tricuspid Valve TR Vmax2.8 m/sRAP (EST) 3 qqQyLHBA73.6 mmHg TR Peak GR31.6 mmHg Left Ventricle The left ventricle is normal size. GLS -21.0% There is normal LV segmental wall motion. There is norm al left ventricular wall thickness. LVEF is 55-60%. 3D volume EF 59% Indeterminate diastolic dysfunct ion. Right Ventricle The right ventricle is normal size. The right ventricular systolic function is normal. Atria The left atrium is mildly dilated. The right atrium size is normal. Aortic Valve The aortic valve is normal in structure. No aortic regurgitation is present. There is no aortic valvu lar stenosis. Mitral Valve The mitral valve is normal in structure. There is trace of mitral valve regurgitation noted. There is no mitral valve stenosis. Tricuspid Valve The tricuspid valve is normal in structure. There is no tricuspid valve regurgitation noted. Pulmonic Valve The pulmonary valve is normal in structure. There is no pulmonic valvular regurgitation. Great Vessels The aortic root is normal in size. The IVC is normal in size and collapses >50% with inspiration. Pericardium There is no pericardial effusion. Other Information Quality : Adequate Conclusion LVEF is 55-60%. 3D volume EF 59% The aortic root is normal in size. There is no pericardial effusion.
[2025-03-11] MEDS: ARTIFICAL TEARS SOL 15 ML OU PRN (12:00)
--- NOTE | 2025-03-11 13:44 | PN ---
[facility] PROGRESS NOTE Date of Service: Mar 11, 2025 Time of Service: 9:20 SUBJECTIVE: This is an 84-year-old female with past medical history of anemia, hyperlipidemia and hypertension who presents to the ED for complaints of headache and dizziness following a fall injury at home. As per patient she was tripped over a chair,from a standing position and fell forward on her left side hitting a pole on her left side of the head and left knee as well. Patient sustained a large hematoma on her left side of the head. Patient reports headache around where hematoma is located, left eye blurry vision and felt dizzy as well. Patient denies taking any blood thinner and antiplatelet medication. Patient denies loss of consciousness ,facial droop,motor weakness and seizure a ctivity.Patient reports she was admitted last May of 2024 and underwent a capsule endoscopy and was not able to find the source of bleeding but she received blood transfusion she said. CT head without contrast on presentation result revealed focal hypodensity involving the left middle cerebellar peduncle, raises concern for acute ischemic change. Left frontal parietal pericranial soft tissue contusion with hematoma and emphysematous changes. Diffuse cerebral atrophy consistent with age related changes. Chronic small-vessel ischemic changes in bilateral centrum semiovale, waldrop radiata, ganglio-capsular regions, midbrain and prasad. Chronic lacunar infarct in the right ganglia capsular region. No acute intracranial hemorrhage. CT cervical spine without contrast result revealed multilevel moderate spondylosis as evident by marginal S osteophytes, reduction in the disc space with associated endplate deformities and bilateral veranda variable facetal joint arthropathy. Multilevel moderated diffuse disc bulge from C3-C4 through C6-C7 levels in the form of disc osteophyte complex and bilateral uncovertebral joint spurring causing indentation on the anterior thecal sac moderate narrowing of the bilateral neural foramina with possible impingement on the exiting nerve roots. Straightening of the cervical lordosis which may represent paraspinal muscle spasm. Patient is pending repeat head CT, echocardiogram and MRI brain. Patient is being followed by Neurology, critical Care and Neurosurgery consult. REVIEW OF SYSTEMS CONSTITUTIONAL: Complaints of chills Denies fevers, night sweats. No unintentional weight loss reported. NEUROLOGICAL: Complains of headache and dizziness Denies amaurosis fugax, motor weakness, sensory deficit, gait abnormalities, or tremors. ENT: No hearing loss, otalgia, otorrhea, rhinitis, rhinorrhea, hoarseness, or sore throat. CARDIOVASCULAR: Denies any exertional angina, dyspnea on exertion, orthopnea, paroxysmal nocturnal dyspnea, palpitations, life-threatening arrhythmias, claudication. PULMONARY: Denies any shortness of breath, cough, phlegm/sputum, hemoptysis, pleuritic chest pain. SLEEP: Denies morning headaches, daytime somnolence or napping. Denies difficulty falling asleep, staying asleep, waking from sleep. Denies knowledge of snoring. GASTROINTESTINAL: Denies any type of dysphagia to either liquids or solids. Denies nausea, vomiting, pyrosis, early satiety, abdominal pain, diarrhea, constipation, or changes in stool consistency or caliber. Denies coffee-ground emesis, hematemesis, hematochezia, or melanotic stools. GENITOURINARY: Denies frequency, urgency, nocturia, hematuria or incontinence (Storage/Irritative symptoms.) Low urinary stream, straining to void, urinary intermittency or hesitancy, splitting of the voiding stream, terminal dribbling. ENDOCRINOLOGIC: Denies polyuria, polydipsia, polyphagia or heat/cold intolerances. HEMATOLOGIC: Denies thrombophilia/previous clots, or coagulopathy/bleeding disorders. ONCOLOGIC: Denies personal history of malignancy. DERMATOLOGIC: Denies rashes or pruritus. PSYCHIATRIC: Denies any suicidal or homicidal ideation. Denies hallucinations. PHYSICAL EXAM GENERAL APPEARANCE: The patient is awake, alert, and oriented, in no acute cardiopulmonary distress. NEUROLOGICAL: Cranial nerves II-XII grossly intact. Motor is 5/5 in bilateral upper and lower extremities proximal to distal. No sensory deficits. HEENT: Face is symmetric. Pupils are equal and reactive. Extraocular movements are intact. NECK: Supple. No JVD. No thyromegaly. No submental, submandibular, pre- /postauricular, occipital or supraclavicular lymphadenopathy. CHEST: Normal chest expansion. No Telemetry. LUNGS: Absence of any rales, rhonchi or any wheezing. CARDIOVASCULAR: Regular. S1 and S2 normal. No appreciable rubs, murmurs or gallops. ABDOMEN: Soft, nontender, and nondistended. There is no rebound, voluntary guarding, or rigidity. : Deferred. No Galvez. EXTREMITIES: Non-edematous and not cyanotic. No clubbing. Good capillary refill. SKIN: Hematoma to left side of the head Vital Signs (last 8hr) Date Time Temp Pulse Resp B/P (MAP) Pulse Ox O2 Delivery O2 Flow Rate FiO2 03/11/25 12:00 64 12 132/77 95 Room Air 21 03/11/25 11:24 97.9 03/11/25 11:00 62 14 131/78 95 Room Air 21 03/11/25 10:00 61 14 126/66 94 Room Air 21 03/11/25 09:00 61 14 122/69 96 Room Air 21 03/11/25 08:00 97.9 65 18 145/87 97 Room Air 21 03/11/25 07:00 62 12 138/71 92 Room Air 03/11/25 06:40 68 25 140/74 95 03/11/25 06:10 66 21 133/74 92 Room Air 03/11/25 06:00 96 Room Air* 0 21 03/11/25 05:44 63 29 161/82 97 Room Air LABS: Laboratory: Test 03/11/25 11:23 03/11/25 04:01 03/11/25 01:30 03/10/25 20:27 Range/Units Whole Blood Glucose 78 70-110 MG/DL White Blood Count 7.9 4.8-10.8 K/uL Red Blood Count 3.21 L 4.00-5.50 MIL/uL Hemoglobin 10.5 L 12.0-16.0 g/dL Hematocrit 32.2 L 36-48 % Mean Corpuscular Volume 100.3 H 79-99 fL Mean Corpuscular Hemoglobin 32.7 27.0-33.0 pg Mean Corpuscular Hemoglobin Concent 32.6 32.0-36.0 g/dL Red Cell Distribution Width 12.1 11.0-15.5 % Platelet Count 220 130-400 K/uL Mean Platelet Volume 9.8 7.5-10.5 fL Immature Granulocyte % (Auto) 0.5 0-1 % Neutrophils (%) (Auto) 66.3 40.0-77.0 % Lymphocytes (%) (Auto) 18.1 L 21.0-51.0 % Monocytes (%) (Auto) 7.3 3.0-13.0 % Eosinophils (%) (Auto) 6.2 0.0-8.0 % Basophils (%) (Auto) 1.6 0.0-5.0 % Neutrophils # (Auto) 5.2 1.8-7.7 K/uL Lymphocytes # (Auto) 1.4 1.0-4.8 K/uL Monocytes # (Auto) 0.6 0.1-1.0 K/uL Eosinophils # (Auto) 0.49 0.00-0.70 K/uL Basophils # (Auto) 0.13 0.00-0.20 K/uL Absolute Immature Granulocyte (auto 0.04 0-1 K/uL Nucleated Red Blood Cells 0.0 0.0-0.19 % Sodium Level 141 136-145 mmol/L Potassium Level 4.1 3.5-5.1 mmol/L Chloride Level 109 101-111 mmol/L Carbon Dioxide Level 26 21-32 mmol/L Blood Urea Nitrogen 18 7-18 mg/dL Creatinine 1.3 H 0.5-1.0 mg/dL Glomerular Filtration Rate Calc 41 >90 mL/min Random Glucose 94 70-105 mg/dL Hemoglobin A1c 5.8 4.0-6.0 % Estimated Average Glucose (eAG) 120 70-126 mg/dL Total Calcium 7.9 L 8.5-10.1 mg/dL Magnesium Level 1.80 1.80-2.40 mg/dL Total Bilirubin 0.2 0.2-1.0 mg/dL Aspartate Amino Transf (AST/SGOT) 17 10-37 U/L Alanine Aminotransferase (ALT/SGPT) 16 12-78 U/L Alkaline Phosphatase 56 50-136 U/L Total Protein 5.5 L 6.0-8.3 g/dL Albumin 2.8 L 3.5-5.0 g/dL Triglycerides Level 210 H 30-200 mg/dL Cholesterol Level 118 <200 mg/dL LDL Cholesterol 42 0-99 mg/dL HDL Cholesterol 39 35-85 mg/dL Thyroid Stimulating Hormone (TSH) 2.20 0.36-3.74 uIU/mL Urine Color COLORLESS YELLOW Urine Appearance CLEAR CLEAR Urine pH 5.5 5.0-8.0 Urine Specific Morrow 1.008 1.001-1.031 Urine Protein NEGATIVE NEGATIVE mg/dL Urine Glucose (UA) NEGATIVE NEGATIVE mg/dL Urine Ketones NEGATIVE NEGATIVE mg/dL Urine Occult Blood NEGATIVE NEGATIVE Urine Nitrate NEGATIVE NEGATIVE Urine Bilirubin NEGATIVE NEGATIVE mg/dL Urine Urobilinogen 0.2 0.2-1.0 mg/dL Urine Leukocyte Esterase 250 H NEGATIVE Carolyn/uL Urine RBC 0-1 0-1 /HPF Urine WBC 2-5 H 0-1 /HPF Urine Squamous Epithelial Cells RARE 0-2 /HPF Urine Bacteria RARE None Seen /HPF Total Creatine Kinase 64 21-232 U/L Troponin I High Sensitivity 7.0 4-50 ng/L Serum Alcohol < 3 0-10 mg/dL Current Medications Medications (Trade) Dose Ordered Sig/Sabrina Route PRN Reason Start Time Stop Time Status Last Admin Dose Admin Acetaminophen (TYLenol 325MG TAB) 650 mg Q4H PRN PO MILD PAIN (1-3) 03/11/25 00:00 04/10/25 00:00 Acetaminophen (TYLenol 325MG TAB) 650 mg Q6H PRN PO TEMPERATURE GREATER THAN 101.5 03/11/25 00:00 04/10/25 00:00 Artificial Tears (Artificial Tears) 1 DROP 5X/DAY PRN OU DRY EYES 03/11/25 11:00 04/10/25 10:59 03/11/25 12:00 1 DROP Artificial Tears (Artificial Tears) 1 drop 5X/DAY PRN OU DRY EYES 03/11/25 11:00 03/11/25 10:48 DC Famotidine (Pepcid 20mg Vial) 20 mg DAILY IV 03/11/25 09:00 04/10/25 08:59 03/11/25 10:44 20 MG Magnesium Sulfate 50 ml @ 0 mls/hr PROTOCOL PRN IV OTHER [SEE ORDER COMMENTS] 03/11/25 00:30 04/10/25 00:29 03/11/25 10:44 25 MLS/HR Morphine Sulfate (morPHINE 2MG SYG) 2 mg Q4H PRN IVP SEVERE PAIN (7-10) 03/11/25 00:00 03/18/25 00:00 03/11/25 06:17 2 MG Ondansetron HCl (zoFRAN 4MG INJ) 4 mg Q6H PRN IV NAUSEA/VOMITING 03/11/25 00:00 04/10/25 00:00 Potassium Chloride 100 ml @ 100 mls/hr AD PRN IV POTASSIUM PROTOCOL 03/11/25 00:30 04/10/25 00:29 Potassium Chloride (K-Dur/Klor-Con 20meq) 20 meq AD PRN PO POTASSIUM PROTOCOL 03/11/25 00:30 04/10/25 00:29 Potassium Chloride (KCl 10% Elixir 20meq/15ml) 20 meq AD PRN PO POTASSIUM PROTOCOL 03/11/25 00:30 04/10/25 00:29 Sodium Chloride 1,000 ml @ 75 mls/hr [id number] IV 03/11/25 00:00 04/10/25 00:00 03/11/25 02:45 75 MLS/HR DIAGNOSTICS / RADIOLOGY: [PATIENT: ALICIA SWEET MR#: [id number] : 1940 SEX: F AGE: 84 LOCATION: [facility] ORDER 29 STATUS: REG [facility] REPORT#: [id number] SERVICE REASON: fall and large hematoma left side of forehead and temporal area ORDERING PHYSICIAN: ADILSON WOMACK MD PROCEDURE: C SPIN WO - CT CERVICAL SPINE W/O CONTRAST EXAM: CT Cervical Spine Without IV contrast. CLINICAL HISTORY: fall and large hematoma left side of forehead and temporal area TECHNIQUE: Axial computed tomography images of the cervical spine without intravenous contrast. Sagittal and coronal reformatted images were generated. COMPARISON: None provided. FINDINGS: ALIGNMENT: Bony alignment is anatomic.Straightening of the cervical lordosis, which may represent paraspinal muscle spasm. DEGENERATIVE CHANGES: Multilevel moderate spondylosis as evident by marginal osteophytes, reduction in disc space with associated endplate deformities, and bilateral variable facetal joint arthropathy. Multilevel moderated diffuse disc bulge from C3-C4 through C6-C7 levels in the form of disc osteophyte complex and bilateral uncovertebral joint spurring causing indentation on the anterior thecal sac, moderate narrowing of the bilateral neural foramina, with possible impingement on the exiting nerve roots. SOFT TISSUES: The prevertebral soft tissues are within normal limits. BONES: No acute fracture or aggressive appearing osseous lesion. IMPRESSION: No acute cervical spine abnormality. Multilevel moderate spondylosis as evident by marginal osteophytes, reduction in disc space with associated endplate deformities, and bilateral variable facetal joint arthropathy. Multilevel moderated diffuse disc bulge from C3-C4 through C6-C7 levels in the form of disc osteophyte complex and bilateral uncovertebral joint spurring causing indentation on the anterior thecal sac, moderate narrowing of the bilateral neural foramina, with possible impingement on the exiting nerve roots.Straightening of the cervical lordosis, which may represent paraspinal muscle spasm. Recommended MRI for further evaluation. /Levasy DICTATED BY: NEHEMIAS MCFARLAND MD DATE: 03/10/252209 ELECTRONICALLY SIGNED BY: NEHEMIAS MCFARLAND MD DATE: 03/10/252209 PATIENT: ALICIA SWEET MR#: [id number] : 1940 SEX: F AGE: 84 LOCATION: [facility] ORDER 29 STATUS: REG REPORT#: [id number] SERVICE 26 REASON: fall and large hematoma left side of forehead and temporal area ORDERING PHYSICIAN: ADILSON WOMACK MD PROCEDURE: HEAD WO - CT HEAD/BRAIN W/O CONTRAST EXAM: CT Head Without IV contrast. CLINICAL HISTORY: Patient presents after fall with large hematoma over left forehead and temporal region. TECHNIQUE: Axial computed tomography images of the head/brain without intravenous contrast. COMPARISON: None provided. FINDINGS: BRAIN: Diffuse age-related cerebral atrophy with dilatation of the lateral ventricles, prominence of the basal cisterns, cortical sulci, and bilateral sylvian fissures. Ill-defined hypodensities involving bilateral centrum semiovale, waldrop radiata, ganglio-capsular regions, midbrain, and prasad, consistent with chronic small vessel ischemic changes. 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 Focal hypodensity involving the left middle cerebellar peduncle, raises concern for acute ischemic change. No acute hemorrhage, mass lesion, or midline shift. VENTRICLES: No hydrocephalus. ORBITS: Unremarkable. SINUSES AND MASTOIDS: Clear. BONES: No fracture. SOFT TISSUES: Left frontal-parietal pericranial soft tissue contusion with hematoma and associated emphysematous changes. IMPRESSION: Focal hypodensity involving the left middle cerebellar peduncle, raises concern for acute ischemic change. Left frontal-parietal pericranial soft tissue contusion with hematoma and emphysematous changes. Diffuse cerebral atrophy consistent with age-related changes. Chronic small vessel ischemic changes in bilateral centrum semiovale, waldrop radiata, ganglio-capsular regions, midbrain, and prasad. Chronic lacunar infarct in the right ganglio-capsular region. No acute intracranial hemorrhage. Recommended MRI brain for further evaluation. /[place] DICTATED BY: NEHEMIAS MCFARLAND MD DATE: 03/10/252209 ELECTRONICALLY SIGNED BY: NEHEMIAS MCFARLAND MD DATE: 03/10/252209 PATIENT: ALICIA SWEET MR#: [id number] : 1940 SEX: F AGE: 84 LOCATION: [facility] ORDER 30 STATUS: REG ER REPORT#: [id number] SERVICE 29 REASON: hard fall on the left side ORDERING PHYSICIAN: ADILSON WOMACK MD PROCEDURE: CXR1VW - CHEST 1VW EXAM: CR Chest, 1 View. CLINICAL HISTORY: hard fall on the left side COMPARISON: None provided. FINDINGS: LUNGS: There is no mass, infiltrate, or acute pulmonary abnormality. PLEURAL SPACES: No evidence of pleural effusion or pneumothorax. MEDIASTINUM: The cardiomediastinal silhouette is within normal limits. Moderate hiatal hernia BONES: No acute osseous abnormality. IMPRESSION: No acute cardiopulmonary pathology is evident. /Levasy DICTATED BY: NEHEMIAS MCFARLAND MD DATE: 03/10/252213 ELECTRONICALLY SIGNED BY: NEHEMIAS MCFARLAND MD DATE: 03/10/252213 PATIENT: ALICIA SWEET MR#: [id number] : 1940 SEX: F AGE: 84 LOCATION: [facility] ORDER 30 STATUS: REG ER REPORT#: [id number] SERVICE 29 REASON: hard fall on the left side ORDERING PHYSICIAN: ADILSON WOMACK MD PROCEDURE: KNEE 4V LT - KNEE 4+VWS LT EXAM: CR left knee, 3 View. CLINICAL HISTORY: hard fall on the left side COMPARISON: None provided. FINDINGS: Medial compartment predominant mild to moderate tricompartmental left knee joint osteoarthritis. Small knee joint effusion. Prepatellar and infrapatellar bursitis. No displaced fracture is appreciated. IMPRESSION: 1. No acute fracture identified. 2. Mild to moderate tricompartmental left knee osteoarthritis, predominantly in the medial compartment, with small joint effusion and bursitis. /Levasy DICTATED BY: LUCIA JENKINS Jr., MD DATE: 03/10/252214 ELECTRONICALLY SIGNED BY: LUCIA JENKINS Jr., MD DATE: 03/10/252214 ASSESSMENT: Status post mechanical fall injury POA Left parietal scalp hematoma POA Headache POA Chronic anemia POA Acute kidney injury POA Left knee pain Left middle cerebellar peduncle concern for acute ischemic change per CT POA Left frontal parietal pericranial soft tissue contusion with hematoma and emphysema toes changes per CT POA Hypertension POA Hyperlipidemia POA PLAN: Status post mechanical fall injury, Left parietal scalp hematoma and Left middle cerebellar peduncle concern for acute ischemic change per CT - Patient's head CT on presentation showed Focal hypodensity involving the left middle cerebellar peduncle, raises concern for acute ischemic change. Left frontal-parietal pericranial soft tissue contusion with hematoma and emphysematous changes. Diffuse cerebral atrophy consistent with age-related changes. Chronic small vessel ischemic changes in bilateral centrum semiovale, waldrop radiata, ganglio-capsular regions, midbrain, and prasad.Chronic lacunar infarct in the right ganglio-capsular region. No acute intracranial hemorrhage. - Follow up with repeat CT head in the morning. - Patient is pending MRI brain and 2D echo. - Follow up with Neurology and Neurosurgery consultations. - Patient is receiving sodium mL/ hour. - Zofran PRN for nausea and vomiting. - Monitor electrolytes and repeat accordingly - Fall precautions in place. Acute kidney injury - On presentation, patient's BUN and creatinine were elevated, 19 and 1.3 respectively. - Maintain hydration with sodium chloride 75 mL/hour. - Avoid any nephrotoxic drugs. Monitor electrolytes and replete accordingly. - Patient's urinalysis showed 250 LE. Follow up with urine culture. ATTESTATION BY PHYSICIAN I have seen and examined the patient. I reviewed the documentation, medical decision making, and treatment plan as noted by the resident provider above. I agree with the findings and plan of care. ASHOK HOLLAND MD, MUHAMMAD H MD Mar 11, 2025 13:43
[2025-03-11] MEDS ORDERED: OXYB15TA19 PO (15:46)
--- NOTE | 2025-03-11 19:35 | NUR ---
04/06 Migraine 1924 Pt arrives to room 204. Report received. During bedside report pt reports 04/06 migraine, chills, and nausea. BP taken 160s/110. Pt is shivering. Warm blankets applied with warm packs. Morphine, Zofran given. Pt without fever. Aax3. No neuro changes assessed and pt denies any tingling, numbness, radiation. No SOB. No emesis. Pt starting to feel better a couple mins after PRNs given.
[2025-03-12] VITALS (10 sets, daily range): BP systolic 125–170; BP diastolic 65–87; PULSE 57–69; RESP 18–20; TEMP 97.2–98.7; O2SAT 94–97
--- NOTE | 2025-03-12 00:06 | CONS ---
CHIEF COMPLAINT: "Got a fall yesterday, hit my head when I tripped with the chair." HISTORY OF PRESENT ILLNESS: This is an 84-year-old female patient, actually retired, who apparently was with her and tried to sit down in a chair and tripped with a chair and hit her head on the left side. Head CT scan to be seen and she was found to have a large frontal cephalohematoma about 4.2 x 2.2 x 1.0 cm with a history of thrombocytopenia purpura, history of hypertension, high cholesterol, chronic depression as well as osteoarthritis. For all of these conditions, the patient is taking different medication, i.e., lisinopril 10 mg once a day. She is taking metoprolol 25 mg three times a day, atorvastatin 40 mg once a day, hydrocodone for the osteoarthritis, and medication for depression. The patient said that she is doing better, but she still has some headaches, mainly at the occipital region. Denies any nausea or vomiting now, but she had in the past. Denies any syncopal episode. Denies any history of seizures. This event happens to be acute. There is no precipitating factor or aggravating factors, but the relieving factor is mainly painkillers. The patient has some memory loss. This is apparently she claimed to be normal for her age and she does not remember what happened when she had the accident. Denies the use of illegal drugs. Denies the use of alcohol, but she had extensive history of thrombocytopenia purpura with history of transfusions in the past and include administration of platelets. This is the reason why the patient was admitted for observation for any possible intracerebral hematoma. PAST MEDICAL HISTORY: History of hypertension, history of high cholesterol, history of osteoarthritis, history of depression, history of chronic pain, history of chronic thrombocytopenia purpura. ALLERGIES: No known history of any allergies EXCEPT FOR QUININE. SOCIAL HISTORY: The patient lives with her that has kids. She is retired. Denies the use of marijuana, cocaine or illegal drug abuse, neither alcohol or smoking. REVIEW OF SYSTEMS: GENERAL: State headaches, severe, 9/10 on the occiput. HEAD, EYES, EARS, NOSE AND THROAT: Denies discharge from the nose, discharge from the mouth. She had a little bit of facial pain on the left side at the moment of the accident. ABDOMEN: Denies any abdominal pain. EXTREMITIES: Denies any pulses, NO lack of function. Denies any claudication or resting pain. HEART: Denies any palpitations. Denies any angina. Denies any shortness of breath. She has a history of hypertension and high cholesterol. LUNGS: She denies any shortness of breath, dyspnea, or orthopnea. HEMATOLOGIC: History of thrombocytopenia purpura with easy bleeding and multiple transfusions in the past. GENITOURINARY: Denies any dysuria, pyuria, or stranguria. Denies any masses or lesions on her private parts. SURGICAL HISTORY: The patient has a history of abdominal hernia due to hiatal hernia about 3 times, femoral hernias or inguinal hernia repair and she has also had surgery on her left ear that apparently was repaired as well. She does not remember what kind of surgery. PHYSICAL EXAMINATION: VITAL SIGNS: Her blood pressure is 110/70, heart rate 79, respiratory rate 14. GENERAL: The patient is alert, she is following command. Pupils are round, reactive to light and accommodation. ABDOMEN: Soft, depressible, no tenderness. EXTREMITIES: No cyanosis, no edema. NEUROLOGIC: [place] Coma Scale of 15. Cranial nerves from 1 to 10 within normal limits. She has a little bit of a periorbital ecchymosis on the lateral aspect of the orbit, but there are no raccoon eyes. There is no Ji's sign either. Reflexes are 2+ bilaterally. Muscle strength 5/5 on the upper and lower extremities. DTRs are 2+ bilaterally. HEART: Regular rate. No murmur. No gallops. PMI at the fifth intercostal space. DIAGNOSTIC STUDIES: The patient's CT scan shows cephalohematoma of the left frontal lobe of 4.5 cm x 1.2 cm x 2.2 cm. No evidence of midline shifting. No evidence of subdural, epidural or intracerebral hematoma. EKG: Shows rate of 79 with FL interval of 16, QRS complex of 0.08, normal QT intervals. The patient has white blood cell count of 8.3, hemoglobin of 12.5, hematocrit 37.2 with a platelet count of 257,000. Sodium 140, potassium 3.8, chloride 103, CO2 is 30, glucose 84, BUN 19, creatinine 1.3. CA 8.4. ASSESSMENT AND PLAN: This patient unfortunately did not have any hematoma considering she has history of thrombocytopenia purpura and needs to be admitted and put on observation. At this moment, my recommendation will be just to manage the patient with observation and pain management for the headaches and once she has been cleared, probably discharge her home with painkillers for the headaches and try to evaluate the patient as an outpatient in my office in 2 weeks. I do not see no indication for surgery at this moment, but the patient still has some discomfort and pain on the edge of the head and we will probably keep her in observation until tomorrow, see how she does and probably send her home as we speak. Probably we are dealing also with a concussion, and in view that, she does not remember what happened to her. TID: [id number] RECEIPT: [id number] MTDAbril
[2025-03-12 04:38] LABS: IMMATURE GRANULOCYTE ABSOLUTE 0.03 K/uL (0-1); NUCLEATED RED BLOOD CELLS 0.0 % (0.0-0.19); PLATELET COUNT (AUTO) 198 K/uL (130-400); RED BLOOD CELL COUNT(AUTO) 3.58 MIL/uL (4.00-5.50); RED CELL DISTRIBUTION WIDTH 11.8 % (11.0-15.5); WHITE BLOOD COUNT (AUTO) 7.1 K/uL (4.8-10.8)
[2025-03-12 04:48] LABS: INR 0.95 (0.85-1.15)
--- NOTE | 2025-03-12 05:08 | NUR ---
Migraine 0508 Pt states waking up to 8/10 migraine without any radiation. No neuro changes seen. Pt states no other symptoms. Morphine given. 0530 Pt BP 147/80, pt no longer has any pain. Pt states "The morphine worked" and is talking cheerfully to nurse, timmy. Pt remains without any neuro changes. 06 Pt stating has migraine again. Pt states it as worse at 10/10 and radiating to back of head. Hospitalist team paged. Addendum: 03/12/25 at 0648 by LEX HOLLEY LVN LVN [id number] Roderick DANIELS returns page. Diagnosis, history, and situation reviewed. Paged as pt having continued 10/10 pain outside of ordered pain scale of current PRNs and pt has been nauseas when in pain. Per FRANCES, ordered Tylenol PO PRN to be given. Addendum: 03/12/25 at 0654 by LEX HOLLEY LVN LVN 0653 Ice packs refreshed as pt states they help as well.
[2025-03-12 05:14] LABS: ASPARTATE AMINOTRANSFERASE 18.0 U/L (10-37); CREATININE 1.2 mg/dL (0.5-1.0); GLOMERULAR FILTR. RATE CALC 45.0 mL/min (>90); GLUCOSE,RANDOM 89.0 mg/dL (70-105); SODIUM SERUM 138.0 mmol/L (136-145); TOTAL PROTEIN, SERUM 5.7 g/dL (6.0-8.3); UREA NITROGEN, BLOOD 17.0 mg/dL (7-18)
--- NOTE | 2025-03-12 13:32 | NUR ---
DCP: HOME Pt and her Nicolas [phone], have a mobile home at [facility]. Pt reports tat prior to admission, she was "completely independent". Pt uses a cane or walker for long distances, but no at home. No provider, HH or HD services needed at this time. PCP is Pramod Vogt and uses [facility] for rx needs. Addendum: 03/12/25 at 1336 by SESAR JUNG SS Amended: Links added.
--- NOTE | 2025-03-12 14:23 | PN ---
[facility] PROGRESS NOTE Date of Service: Mar 12, 2025 Time of Service: 13:51 SUBJECTIVE: This is an 84-year-old female with past medical history of anemia, hyperlipidemia and hypertension who presents to the ED for complaints of headache and dizziness following a fall injury at home. As per patient she was tripped over a chair,from a standing position and fell forward on her left side hitting a pole on her left side of the head and left knee as well. Patient sustained a large hematoma on her left side of the head. Patient reports headache around where hematoma is located, left eye blurry vision and felt dizzy as well. Patient denies taking any blood thinner and antiplatelet medication. Patient denies loss of consciousness ,facial droop,motor weakness and seizure activity.Patient reports she was admitted last May of 2024 and underwent a capsule endoscopy and was not able to find the source of bleeding but she received blood transfusion she said. CT head without contrast on presentation result revealed focal hypodensity involving the left middle cerebellar peduncle, raises concern for acute ischemic change. Left frontal parietal pericranial soft tissue contusion with hematoma and emphysematous changes. Diffuse cerebral atrophy consistent with age related changes. Chronic small-vessel ischemic changes in bilateral centrum semiovale, waldrop radiata, ganglio-capsular regions, midbrain and prasad. Chronic lacunar infarct in the right ganglia capsular region. No acute intracranial hemorrhage. CT cervical spine without contrast result revealed multilevel moderate spondylosis as evident by marginal S osteophytes, reduction in the disc space with associated endplate deformities and bilateral veranda variable facetal joint arthropathy. Multilevel moderated diffuse disc bulge from C3-C4 through C6-C7 levels in the form of disc osteophyte complex and bilateral uncovertebral joint spurring causing indentation on the anterior thecal sac moderate narrowing of the bilateral neural foramina with possible impingement on the exiting nerve roots. Straightening of the cervical lordosis which may represent paraspinal muscle spasm. Patient is pending repeat head CT, echocardiogram and MRI brain. Patient is being followed by Neurology, critical Care and Neurosurgery consult. 03/12/2025: Patient was evaluated bedside this morning. She is AAO x3. She complained of headache on the left side attributable to the scalp hematoma. She is hemodynamically stable. Pertinent lab B met, creatinine 1.2. Repeat CT 0n 03/11/2025 revealed left frontal parietal hematoma which is decreased in size compared to the prior exam. Neurosurgery recommends conservative management for headache no surgery for now. Neurology on the board. Awaiting MRI. PT consulted for evaluation and therapy. Plan as discussed below. REVIEW OF SYSTEMS CONSTITUTIONAL: Denies fevers, night sweats. No unintentional weight loss reported. NEUROLOGICAL: Complains of headache and dizziness Denies amaurosis fugax, motor weakness, sensory deficit, gait abnormalities, or tremors. ENT: No hearing loss, otalgia, otorrhea, rhinitis, rhinorrhea, hoarseness, or sore throat. CARDIOVASCULAR: Denies any exertional angina, dyspnea on exertion, orthopnea, paroxysmal nocturnal dyspnea, palpitations, life-threatening arrhythmias, claudication. PULMONARY: Denies any shortness of breath, cough, phlegm/sputum, hemoptysis, pleuritic chest pain. SLEEP: Denies morning headaches, daytime somnolence or napping. Denies difficulty falling asleep, staying asleep, waking from sleep. Denies knowledge of snoring. GASTROINTESTINAL: Denies any type of dysphagia to either liquids or solids. Denies nausea, vomiting, pyrosis, early satiety, abdominal pain, diarrhea, constipation, or changes in stool consistency or caliber. Denies coffee-ground emesis, hematemesis, hematochezia, or melanotic stools. GENITOURINARY: Denies frequency, urgency, nocturia, hematuria or incontinence (Storage/Irritative symptoms.) Low urinary stream, straining to void, urinary intermittency or hesitancy, splitting of the voiding stream, terminal dribbling. ENDOCRINOLOGIC: Denies polyuria, polydipsia, polyphagia or heat/cold intolerances. HEMATOLOGIC: Denies thrombophilia/previous clots, or coagulopathy/bleeding disorders. ONCOLOGIC: Denies personal history of malignancy. DERMATOLOGIC: Denies rashes or pruritus. PSYCHIATRIC: Denies any suicidal or homicidal ideation. Denies hallucinations. PHYSICAL EXAM GENERAL APPEARANCE: The patient is awake, alert, and oriented, in no acute cardiopulmonary distress. NEUROLOGICAL: Cranial nerves II-XII grossly intact. Motor is 5/5 in bilateral upper and lower extremities proximal to distal. No sensory deficits. HEENT: Scalp edema on the left. Left lower eyelid hematoma. Pupils are equal and reactive. Extraocular movements are intact. NECK: Supple. No JVD. No thyromegaly. No submental, submandibular, pre- /postauricular, occipital or supraclavicular lymphadenopathy. CHEST: Normal chest expansion. No Telemetry. LUNGS: Absence of any rales, rhonchi or any wheezing. CARDIOVASCULAR: Regular. S1 and S2 normal. No appreciable rubs, murmurs or gallops. ABDOMEN: Soft, nontender, and nondistended. There is no rebound, voluntary guarding, or rigidity. : Deferred. No Galvez. EXTREMITIES: Non-edematous and not cyanotic. No clubbing. Good capillary re fill. SKIN: Hematoma to left side of the head Vital Signs (last 8hr) Date Time Temp Pulse Resp B/P (MAP) Pulse Ox O2 Delivery O2 Flow Rate FiO2 03/12/25 11:54 98.8 69 20 145/87 95 Room Air 03/12/25 09:45 97 Room Air* 0 21 03/12/25 08:00 98.6 60 20 125/69 95 Room Air LABS: Laboratory: Test 03/12/25 04:23 03/11/25 11:23 03/11/25 04:01 03/11/25 01:30 Range/Units White Blood Count 7.1 4.8-10.8 K/uL Red Blood Count 3.58 L 4.00-5.50 MIL/uL Hemoglobin 11.7 L 12.0-16.0 g/dL Hematocrit 36.0 36-48 % Mean Corpuscular Volume 100.6 H 79-99 fL Mean Corpuscular Hemoglobin 32.7 27.0-33.0 pg Mean Corpuscular Hemoglobin Concent 32.5 32.0-36.0 g/dL Red Cell Distribution Width 11.8 11.0-15.5 % Platelet Count 198 130-400 K/uL Mean Platelet Volume 9.6 7.5-10.5 fL Immature Granulocyte % (Auto) 0.4 0-1 % Neutrophils (%) (Auto) 61.0 40.0-77.0 % Lymphocytes (%) (Auto) 20.5 L 21.0-51.0 % Monocytes (%) (Auto) 7.8 3.0-13.0 % Eosinophils (%) (Auto) 8.3 H 0.0-8.0 % Basophils (%) (Auto) 2.0 0.0-5.0 % Neutrophils # (Auto) 4.3 1.8-7.7 K/uL Lymphocytes # (Auto) 1.5 1.0-4.8 K/uL Monocytes # (Auto) 0.6 0.1-1.0 K/uL Eosinophils # (Auto) 0.59 0.00-0.70 K/uL Basophils # (Auto) 0.14 0.00-0.20 K/uL Absolute Immature Granulocyte (auto 0.03 0-1 K/uL Nucleated Red Blood Cells 0.0 0.0-0.19 % Prothrombin Time 10.1 9.6-11.6 SEC Prothromb Time International Ratio 0.95 0.85-1.15 Activated Partial Thromboplast Time 24.7 L 26.3-35.5 SEC Sodium Level 138 136-145 mmol/L Potassium Level 4.6 3.5-5.1 mmol/L Chloride Level 108 101-111 mmol/L Carbon Dioxide Level 25 21-32 mmol/L Blood Urea Nitrogen 17 7-18 mg/dL Creatinine 1.2 H 0.5-1.0 mg/dL Glomerular Filtration Rate Calc 45 >90 mL/min Random Glucose 89 70-105 mg/dL Total Calcium 8.5 8.5-10.1 mg/dL Magnesium Level 2.40 1.80-2.40 mg/dL Total Bilirubin 0.3 0.2-1.0 mg/dL Aspartate Amino Transf (AST/SGOT) 18 10-37 U/L Alanine Aminotransferase (ALT/SGPT) 17 12-78 U/L Alkaline Phosphatase 50 50-136 U/L Total Protein 5.7 L 6.0-8.3 g/dL Albumin 2.7 L 3.5-5.0 g/dL Whole Blood Glucose 78 70-110 MG/DL Hemoglobin A1c 5.8 4.0-6.0 % Estimated Average Glucose (eAG) 120 70-126 mg/dL Triglycerides Level 210 H 30-200 mg/dL Cholesterol Level 118 <200 mg/dL LDL Cholesterol 42 0-99 mg/dL HDL Cholesterol 39 35-85 mg/dL Thyroid Stimulating Hormone (TSH) 2.20 0.36-3.74 uIU/mL Urine Color COLORLESS YELLOW Urine Appearance CLEAR CLEAR Urine pH 5.5 5.0-8.0 Urine Specific Canones 1.008 1.001-1.031 Urine Protein NEGATIVE NEGATIVE mg/dL Urine Glucose (UA) NEGATIVE NEGATIVE mg/dL Urine Ketones NEGATIVE NEGATIVE mg/dL Urine Occult Blood NEGATIVE NEGATIVE Urine Nitrate NEGATIVE NEGATIVE Urine Bilirubin NEGATIVE NEGATIVE mg/dL Urine Urobilinogen 0.2 0.2-1.0 mg/dL Urine Leukocyte Esterase 250 H NEGATIVE Carolyn/uL Urine RBC 0-1 0-1 /HPF Urine WBC 2-5 H 0-1 /HPF Urine Squamous Epithelial Cells RARE 0-2 /HPF Urine Bacteria RARE None Seen /HPF Test 03/10/25 20:27 Range/Units Total Creatine Kinase 64 21-232 U/L Troponin I High Sensitivity 7.0 4-50 ng/L Serum Alcohol < 3 0-10 mg/dL Current Medications Medications (Trade) Dose Ordered Sig/Sabrina Route PRN Reason Start Time Stop Time Status Last Admin Dose Admin Acetaminophen (TYLenol 325MG TAB) 650 mg Q4H PRN PO MILD PAIN (1-3) 03/11/25 00:00 04/10/25 00:00 03/12/25 13:20 650 MG Acetaminophen (TYLenol 325MG TAB) 650 mg Q6H PRN PO TEMPERATURE GREATER THAN 101.5 03/11/25 00:00 04/10/25 00:00 Acetaminophen/ Hydrocodone Bitart (VicoDIN ES/ NORco ES 7.5/ 325MG) 1 tab Q6H PRN PO MODERATE PAIN (4-6) 03/12/25 13:30 03/17/25 13:29 Artificial Tears (Artificial Tears) 1 DROP 5X/DAY PRN OU DRY EYES 03/11/25 11:00 04/10/25 10:59 03/12/25 13:21 1 DROP Artificial Tears (Artificial Tears) 1 drop 5X/DAY PRN OU DRY EYES 03/11/25 11:00 03/11/25 10:48 DC Famotidine (Pepcid 20mg Vial) 20 mg DAILY IV 03/11/25 09:00 04/10/25 08:59 03/12/25 09:33 20 MG Magnesium Sulfate 50 ml @ 0 mls/hr PROTOCOL PRN IV OTHER [SEE ORDER COMMENTS] 03/11/25 00:30 04/10/25 00:29 03/11/25 10:44 25 MLS/HR Morphine Sulfate (morPHINE 2MG SYG) 2 mg Q4H PRN IVP SEVERE PAIN (7-10) 03/11/25 00:00 03/12/25 13:33 DC 03/12/25 10:24 2 MG Ondansetron HCl (zoFRAN 4MG INJ) 4 mg Q6H PRN IV NAUSEA/VOMITING 03/11/25 00:00 04/10/25 00:00 03/11/25 19:30 4 MG Potassium Chloride 100 ml @ 100 mls/hr AD PRN IV POTASSIUM PROTOCOL 03/11/25 00:30 04/10/25 00:29 Potassium Chloride (K-Dur/Klor-Con 20meq) 20 meq AD PRN PO POTASSIUM PROTOCOL 03/11/25 00:30 04/10/25 00:29 Potassium Chloride (KCl 10% Elixir 20meq/15ml) 20 meq AD PRN PO POTASSIUM PROTOCOL 03/11/25 00:30 04/10/25 00:29 Sodium Chloride 1,000 ml @ 75 mls/hr [id number] IV 03/11/25 00:00 03/11/25 16:43 DC 03/11/25 02:45 75 MLS/HR DIAGNOSTICS / RADIOLOGY: ASSESSMENT: Status post mechanical fall injury POA Left parietal scalp hematoma POA Headache POA Chronic anemia POA Acute kidney injury POA Left knee pain Left middle cerebellar peduncle concern for acute ischemic change per CT POA Left frontal parietal pericranial soft tissue contusion with hematoma and emphysema toes changes per CT POA Hypertension POA Hyperlipidemia POA PLAN: Status post mechanical fall injury, Left parietal scalp hematoma and Left middle cerebellar peduncle concern for acute ischemic change per CT - Patient's head CT on presentation showed Focal hypodensity involving the left middle cerebellar peduncle, raises concern for acute ischemic change. Left frontal-parietal pericranial soft tissue contusion with hematoma and emphy sematous changes. Diffuse cerebral atrophy consistent with age-related changes. Chronic small vessel ischemic changes in bilateral centrum semiovale, waldrop radiata, ganglio-capsular regions, midbrain, and prasad.Chronic lacunar infarct in the right ganglio-capsular region. No acute intracranial hemorrhage. -Repeat CT on 03/11/2025 revealed left frontal parietal hematoma which is decreased in size when compared with the prior exam. No acute intracranial abnormality. Stable chronic ischemic and atrophic changes. - Patient is pending MRI brain and 2D echo. -neurosurgery recommended conservative management. No acute surgical int ervention required. - Follow up with Neurology. - Patient is receiving sodium mL/ hour. - Zofran PRN for nausea and vomiting. - Monitor electrolytes and repeat accordingly - Physical therapy consulted for the evaluation and treatment. - Fall precautions in place. Acute kidney injury - On presentation, patient's BUN and creatinine were elevated, 19 and 1.3 respectively. Creatinine this morning is 1.2. - Maintain hydration with sodium chloride 75 mL/hour. - Avoid any nephrotoxic drugs. Monitor electrolytes and replete accordingly. - Patient's urinalysis showed 250 LE. Urine culture repeat no significant bacteriuria. ATTESTATION BY PHYSICIAN I have seen and examined the patient. I reviewed the documentation, medical decision making, and treatment plan as noted by the resident provider above. I agree with the findings and plan of care. Casper Mayes MD, SUNIL MD Mar 12, 2025 14:23
--- NOTE | 2025-03-12 14:46 | NUR ---
Neurology coverage Spoke to Severo Cabrera concerning neurology coverage. Dr. Guerra not medical economics consultant today and if needed neurology would need to be via tele neuro. Dr. Cabrera stated will consult neurology if MRI is positive. Pending MRI to be done. Spoke to laboratory mechanical technician and stated it would be later today; relayed this information to Dr. Cabrera.
--- NOTE | 2025-03-12 17:00 | NUR ---
SPEECH TRIGGER COMPLETED / S/P FALL INJURY, CLOSED HEAD INJURY LEFT PARIETAL Pt IS AN 84 Y.O. FEMALE ADMITTED SECONDARY TO S/P FALL INJURY, CLOSED HEAD INJURY LEFT PARIETAL. Pt HAS A PAST MEDICAL HISTORY SIGNIFICANT FOR ANEMIA, HYPERLIPIDEMIA; AND HYPERTENSION. PATIENT PRESENTED WITH NO PULMONARY INFILTRATES ON MOST RECENT CHEST X-RAY (03/10/2025). Pt CURRENTLY ON HEART HEALTHY DIET (REGULAR TEXTURE AND THIN LIQUIDS). PER NURSE DORADO, Pt TOLERATING DIET WITH NO OVERT S/S OF ASPIRATION. PLEASE REQUEST SPEECH THERAPY SERVICES FOR SKILLED BEDSIDE SWALLOW EVALUATION IF Pt PRESENTS WITH +S/S OF ASPIRATION SUCH COUGH RESPONSE, THROAT CLEAR, OR WET VOCAL QUALITY DURING ORAL INTAKE. ALL QUESTIONS ANSWERED AT THIS TIME. Addendum: 03/12/[address] NELSON MENDOZA Amended: Links added.
--- NOTE | 2025-03-12 20:39 | HMCIMG ---
EXAM: MR Brain Without Intravenous Contrast. CLINICAL HISTORY: 84-year-old female with hematoma. TECHNIQUE: Magnetic resonance images of the brain without intravenous contrast in multiple planes. CONTRAST: NONE COMPARISON: CT head from 03/11/2025 at 5:48 am. FINDINGS: BRAIN: Increased signal structures in the deep white matter and periventricular zones suggest possible demyelinating disease such as multiple sclerosis. This is better appreciated compared to the prior CT head from 03/11/2025 at 5:48 am. No restricted diffusion to indicate acute infarction. No intracranial mass or hemorrhage. No midline shift or extra-axial fluid collection. No cerebellar tonsillar ectopia. No abnormal enhancement. The central arterial and venous flow voids are patent. SOFT TISSUES: A hematoma in the left frontal scalp region is seen. This is similar compared to the prior CT head from 03/11/2025 at 5:48 am. VENTRICLES: No hydrocephalus. ORBITS: The orbits are normal. SINUSES AND MASTOIDS: The sinuses and mastoid air cells are clear. BONES: No acute fracture or focal osseous lesion. IMPRESSION: 1. No acute intracranial process. 2. Possible demyelinating disease such as multiple sclerosis, better appreciated compared to the prior CT head from 03/11/2025 at 5:48 am. 3. Left frontal scalp hematoma, similar compared to the prior CT head from 03/11/2025 at 5:48 am. /[place]
[2025-03-13 04:00] VITALS: BP 141/7; PULSE 60; RESP 20; TEMP 97.7
[2025-03-13 04:32] LABS: NUCLEATED RED BLOOD CELLS 0.0 % (0.0-0.19); PLATELET COUNT (AUTO) 191.0 K/uL (130-400); RED BLOOD CELL COUNT(AUTO) 3.2 MIL/uL (4.00-5.50); RED CELL DISTRIBUTION WIDTH 11.8 % (11.0-15.5); WHITE BLOOD COUNT (AUTO) 6.6 K/uL (4.8-10.8)
[2025-03-13 04:53] LABS: CREATININE 1.2 mg/dL (0.5-1.0); GLOMERULAR FILTR. RATE CALC 45.0 mL/min (>90); GLUCOSE,RANDOM 81.0 mg/dL (70-105); SODIUM SERUM 139.0 mmol/L (136-145); UREA NITROGEN, BLOOD 17.0 mg/dL (7-18)
--- NOTE | 2025-03-13 07:52 | NUR ---
PERIPHERAL IV Patient's peripheral IV infiltrated, however, patient is refusing for new peripheral IV to be placed. Educated patient on need for peripheral IV in case of emergency. Patient continued to decline need for peripheral IV. Refusal form signed by patient.
[2025-03-13 08:00] VITALS: O2SAT 98
[2025-03-13] MEDS: FAMOTIDINE 20MG TAB PO SCH (08:10)
[2025-03-13 08:16] VITALS: BP 175/81; PULSE 61; RESP 16; TEMP 97.8
--- NOTE | 2025-03-13 09:30 | BSKYNEURO ---
[facility] Procedure Note [facility] Consult Consult [facility] Note # Demographics Consult Type: General Neurology Patient Location: Inpatient First Name: ALICIA Last Name: KEE Date of : 1940 Age: 84 Gender: Female Facility: [facility] Time of Initial Page (Central Time): 03/13/2025 08:29 First Contact with Site (Central Time): 03/13/2025 08:31 # HPI History: Here after a fall. On CTH of head which was performed in normal course without underlying neurologic deficit there was a hypodensity so a follow up mri was done without contrast and does show evidence of t2 lesions but there is no contrast to suggest active demyelination and patient denies any acute neurologic changes - no new weakness or numbness or vision changes. # Scores Level of Consciousness 1a: [0] = Alert; keenly responsive LOC Questions 1b: [0] = Answers both questions correctly LOC Commands 1c: [0] = Performs both tasks correctly Best Gaze 2: [0] = Normal Visual 3: [0] = No visual loss Facial Palsy 4: [0] = Normal symmetrical movements Motor Arm Left 5a: [0] = No drift Motor Arm Right 5b: [0] = No drift Motor Leg Left 6a: [0] = No drift Motor Leg Right 6b: [0] = No drift Limb Ataxia 7: [0] = Absent Sensory 8: [0] = Normal Best Language 9: [0] = No aphasia Dysarthria 10: [0] = Normal Extinction and Inattention 11: [0] = No abnormality NIHSS Total: 0 # Exam Additional Neurologic Exam: bruising above eye # Data MRI: - acute ischemia - per radiologist read incidental t2 lesions noted. # Assessment Impression: - Other MRI brain w contrast as outpatient and follow up to better assess for evidence of history of demyelination although she does not report to me any transient spells of neurologic deficits in past. # Plan Imaging / diagnostics: (urgency: outpatient): - MRI brain with and without - MRI C spine Other: - If patient has any neurological deterioration please call me back immediately - I have discussed my recommendations with the referring provider # Logistics Attestation of consult completion: The patient is located at: [facility]. Facility staff participated in the visit. I performed this telemedicine visit from my offsite office utilizing interactive 2 way audio and visual telecommunication technology at the request of the onsite inpatient provider. Total time spent in telemedicine encounter: I spent 21 minutes reviewing clinical data and/or imaging, obtaining history, examining the patient, communicating with the onsite care team, and in preparation of this report. # Demographics First Name: ALICIA Last Name: KEE Facility: [facility] Electronically signed at 03/13/2025 09:29 (Central Time) by Jaun Olmedo MD Neuro Consult Order placed for: Yes DEAN OLMEDO MD Mar 13, 2025 09:29
[2025-03-13 12:28] VITALS: BP 151/91; PULSE 62; RESP 16; TEMP 98.3
[2025-03-13] MEDS ORDERED: HYDR-4060 PO (14:09)
--- NOTE | 2025-03-13 16:45 | NUR ---
Discharge Discharge instructions given to patient and patient's spouse. Both verbalized knowledge and understanding. Patient's belongings gathered back to patient. Patient escorted via wheelchair by MANAGER EVENT.
--- NOTE | 2025-03-13 16:46 | DS ---
Discharge Summary Hospital Course Summary: This is an 84-year-old female with past medical history of anemia, hyperlipidemia and hypertension who presents to the ED for complaints of headache and dizziness following a fall injury at home. As per patient she was tripped over a chair,from a standing position and fell forward on her left side hitting a pole on her left side of the head and left knee as well. Patient sustained a large hematoma on her left side of the head. Patient reports headache around where hematoma is located, left eye blurry vision and felt dizzy as well. Patient denies taking any blood thinner and antiplatelet medication. Patient denies loss of consciousness ,facial droop,motor weakness and seizure activity.Patient reports she was admitted last May of 2024 and underwent a capsule endoscopy and was not able to find the source of bleeding but she received blood transfusion she said. CT head without contrast on presentation result revealed focal hypodensity involving the left middle cerebellar peduncle, raises concern for acute ischemic change. Left frontal parietal pericranial soft tissue contusion with hematoma and emphysematous changes. Diffuse cerebral atrophy consistent with age related changes. Chronic small-vessel ischemic changes in bilateral centrum semiovale, waldrop radiata, ganglio-capsular regions, midbrain and prasad. Chronic lacunar infarct in the right ganglia capsular region. No acute intracranial hemorrhage. CT cervical spine without contrast result revealed multilevel moderate spondylosis as evident by marginal S osteophytes, reduction in the disc space wi th associated endplate deformities and bilateral veranda variable facetal joint arthropathy. Multilevel moderated diffuse disc bulge from C3-C4 through C6-C7 levels in the form of disc osteophyte complex and bilateral uncovertebral joint spurring causing indentation on the anterior thecal sac moderate narrowing of the bilateral neural foramina with possible impingement on the exiting nerve roots. Straightening of the cervical lordosis which may represent paraspinal muscle spasm. She was admitted on the floor for the evaluation and management. Neurology and Neurosurgery was consulted. Patient complained of headache on the left side attributable to the scalp hematoma. Repeat CT 0n 03/11/2025 revealed left frontal parietal hematoma which is decreased in size compared to the prior exam. Neurosurgery recommended conservative management for headache with no surgery. MRI was done on 03/12 2025 which revealed no acute intracranial abnormalities with possible demyelinating disease. For the possible demyelinating disease neurology recommended outpatient follow up with MRI with or without contrast and MRI C-spine. Physical therapy was consulted and after evaluation she was discharged to her home with follow up to her PCP in 3 days, follow up to neurosurgery in [address]Alejandro Garcia, and follow up to Neurology in 2 weeks for the further workup of the possible finding of demyelinating disease in the brain MRI. She was prescribed hydrocodone/acetaminophen(5 mg-325 mg) per oral t.i.d. p.r.n. for 5 days for the headache. 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 CLINICAL HISTORY: fall and large hematoma left side of forehead and temporal area TECHNIQUE: Axial computed tomography images of the cervical spine without intravenous contrast. Sagittal and coronal reformatted images were generated. COMPARISON: None provided. FINDINGS: ALIGNMENT: Bony alignment is anatomic.Straightening of the cervical lordosis, which may represent paraspinal muscle spasm. DEGENERATIVE CHANGES: Multilevel moderate spondylosis as evident by marginal osteophytes, reduction in disc space with associated endplate deformities, and bilateral variable facetal joint arthropathy. Multilevel moderated diffuse disc bulge from C3-C4 through C6-C7 levels in the form of disc osteophyte complex and bilateral uncovertebral joint spurring causing indentation on the anterior thecal sac, moderate narrowing of the bilateral neural foramina, with possible impingement on the exiting nerve roots. SOFT TISSUES: The prevertebral soft tissues are within normal limits. BONES: No acute fracture or aggressive appearing osseous lesion. IMPRESSION: No acute cervical spine abnormality. Multilevel moderate spondylosis as evident by marginal osteophytes, reduction in disc space with associated endplate deformities, and bilateral variable facetal joint arthropathy. Multilevel moderated diffuse disc bulge from C3-C4 through C6-C7 levels in the form of disc osteophyte complex and bilateral uncovertebral joint spurring causing indentation on the anterior thecal sac, moderate narrowing of the bilateral neural foramina, with possible impingement on the exiting nerve roots.Straightening of the cervical lordosis, which may represent paraspinal muscle spasm. Recommended MRI for further evaluation. /[place] DICTATED BY: NEHEMIAS MCFARLAND MD DATE: 03/10/252209 ELECTRONICALLY SIGNED BY: NEHEMIAS MCFARLAND MD DATE: 03/10/252209 Signed PATIENT: ALICIA SWEET MR#: [id number] : 1940 SEX: F AGE: 84 LOCATION: [facility] ORDER 29 STATUS: REG REPORT#: [id number] SERVICE 26 REASON: fall and large hematoma left side of forehead and temporal area ORDERING PHYSICIAN: ADILSON WOMACK MD PROCEDURE: HEAD WO - CT HEAD/BRAIN W/O CONTRAST EXAM: CT Head Without IV contrast. CLINICAL HISTORY: Patient presents after fall with large hematoma over left forehead and temporal region. TECHNIQUE: Axial computed tomography images of the head/brain without intravenous contrast. COMPARISON: None provided. FINDINGS: BRAIN: Diffuse age-related cerebral atrophy with dilatation of the lateral ventricles, prominence of the basal cisterns, cortical sulci, and bilateral sylvian fissures. Ill-defined hypodensities involving bilateral centrum semiovale, waldrop radiata, ganglio-capsular regions, midbrain, and prasad, consistent with chronic small vessel ischemic changes. 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 Focal hypodensity involving the left middle cerebellar peduncle, raises concern for acute ischemic change. No acute hemorrhage, mass lesion, or midline shift. VENTRICLES: No hydrocephalus. ORBITS: Unremarkable. SINUSES AND MASTOIDS: Clear. BONES: No fracture. SOFT TISSUES: Left frontal-parietal pericranial soft tissue contusion with hematoma and associated emphysematous changes. IMPRESSION: Focal hypodensity involving the left middle cerebellar peduncle, raises concern for acute ischemic change. Left frontal-parietal pericranial soft tissue contusion with hematoma and emphysematous changes. Diffuse cerebral atrophy consistent with age-related changes. Chronic small vessel ischemic changes in bilateral centrum semiovale, waldrop radiata, ganglio-capsular regions, midbrain, and prasad. Chronic lacunar infarct in the right ganglio-capsular region. No acute intracranial hemorrhage. Recommended MRI brain for further evaluation. /[place] DICTATED BY: NEHEMIAS MCFARLAND MD DATE: 03/10/252209 ELECTRONICALLY SIGNED BY: NEHEMIAS MCFARLAND MD DATE: 03/10/252209 Signed PATIENT: ALICIA SWEET MR#: [id number] : 1940 SEX: F AGE: 84 LOCATION: [facility] ORDER STATUS: ADM IN REPORT#: [id number] SERVICE 06 REASON: s/p fall injury with closed head injury with hematoma to reassess the size ORDERING PHYSICIAN: MARCELA VAN BELT BUCKLE MAKER PROCEDURE: HEAD WO - CT HEAD/BRAIN W/O CONTRAST EXAM: CT Head Without IV contrast. CLINICAL HISTORY: Fall. Follow up hematoma over left forehead and temporal region. TECHNIQUE: Axial computed tomography images of the head/brain without intravenous contrast. COMPARISON: 03/10/2025 FINDINGS: BRAIN: Stable chronic ischemic and atrophic changes. 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 No acute infarct, hemorrhage, mass lesion, or midline shift. VENTRICLES: No hydrocephalus. ORBITS: Unremarkable. SINUSES AND MASTOIDS: Clear. BONES: No fracture. SOFT TISSUES: 4.6 x 2.2 x 1.0 cm left frontal-parietal hematoma which is decreased in size when compared with the prior exam (previously 5.1 x 3.0 x 1.7 cm). IMPRESSION: 4.6 x 2.2 x 1.0 cm left frontal-parietal hematoma which is decreased in size when compared with the prior exam (previously 5.1 x 3.0 x 1.7 cm). No acute intracranial abnormality. Stable chronic ischemic and atrophic changes. /[place] DICTATED BY: RICK SAENZ MD DATE: 03/11/251011 ELECTRONICALLY SIGNED BY: RICK SAENZ MD DATE: 03/11/25 101 Signed PATIENT: ALICIA SWEET MR#: [id number] : 1940 SEX: F AGE: 84 LOCATION: [facility]AH ORDER 28 STATUS: ADM IN REPORT#: [id number] SERVICE 27 REASON: hematoma/?ischemic cva ORDERING PHYSICIAN: REYNA DOOLEY MD PROCEDURE: BRAIN WO - MR BRAIN WO CON EXAM: MR Brain Without Intravenous Contrast. CLINICAL HISTORY: 84-year-old female with hematoma. TECHNIQUE: Magnetic resonance images of the brain without intravenous contrast in multiple planes. CONTRAST: NONE COMPARISON: CT head from 03/11/2025 at 5:48 am. FINDINGS: BRAIN: Increased signal structures in the deep white matter and periventricular zones suggest possible demyelinating disease such as multiple sclerosis. This is better appreciated compared to the prior CT head from 03/11/2025 at 5:48 am. No restricted diffusion to indicate acute infarction. No intracranial mass or hemorrhage. No midline shift or extra-axial fluid collection. No cerebellar tonsillar ectopia. No abnormal enhancement. The central arterial and venous flow voids are patent. SOFT TISSUES: A hematoma in the left frontal scalp region is seen. This is similar compared to the prior CT head from 03/11/2025 at 5:48 am. VENTRICLES: No hydrocephalus. ORBITS: The orbits are normal. SINUSES AND MASTOIDS: The sinuses and mastoid air cells are clear. BONES: No acute fracture or focal osseous lesion. IMPRESSION: 1. No acute intracranial process. 2. Possible demyelinating disease such as multiple sclerosis, better appreciated compared to the prior CT head from 03/11/2025 at 5:48 am. 3. Left frontal scalp hematoma, similar compared to the prior CT head from 03/11/2025 at 5:48 am. /[place] DICTATED BY: GOLDEN MORROW MD DATE: 03/12/252137 ELECTRONICALLY SIGNED BY: GOLDEN MORROW MD DATE: 03/12/252137 Signed PATIENT: ALICIA SWEET MR#: [id number] : 1940 SEX: F AGE: 84 LOCATION: [facility] ORDER STATUS: ADM IN REPORT#: [id number] SERVICE REASON: cva ORDERING PHYSICIAN: RON RANGEL PROCEDURE: ECHO CMP - ECHO 2-D COMPLETE APPROVED REPORT EXAM: Two-dimensional and M-mode echocardiogram with Doppler and color Doppler. INDICATION ICD: CVA 2D Dimensions RVDd 3.3 cm LVEF(%) 57.0 (>50%) LA ESV INDEX (BP) 36.14 mL/m2 IVSd 0.9 (0.7-1.1cm) FS(%) 29 % LVDd 3.8 (3.8-5.6cm) LA (2D) 4.6 (1.6-4.0cm) PWd 0.9 (0.7-1.1cm) Ao Root(2D) 2.4 (2.0-3.7cm) IVSs 1.1 cm LVOT diam 1.8 (1.8-2.4cm) LVDs 2.7 (2.5-4.0cm) PWs 1.1 cm Deformation Strain Apical 4 -22.5 % Apical 2 -19.5 % Apical 3 -20.0 % Global Strain -20.7 % M-Mode Dimensions EPSS 0.3 cm LA (MM) 4.9 (1.6-4.0cm) Ao Root(MM) 3.4 (2.0-3.7cm) Aortic Valve AoV Vmax 1.4 m/s Ao Peak GR 8.2 mmHg LVOT Vmax 1.1 m/s AoV VTI 0.3 m Ao Mean GR 4.9 mmHg LVOT VTI 0.24 m THAO (VMAX) 2.03 cm2 THAO (VTI) 1.9 cm2 Mitral Valve MV E Vmax 98.1 cm/s DECEL Time 148 ms MV A Vmax 78.8 cm/s P 1/2 T 56 ms E/A ratio 1.2 MVA (PHT) 3.9 cm2 TDI E/E' Medial 14.4 E/E' Lateral 10.2 Medial E' Peak V 6.79 cm/s Lateral E' Peak V 9.58 cm/s Pulmonary Valve PV Vmax 1.0 m/s PV VTI 0.21 m PV Mean GR 2.0 mmHg PV Peak GR 4.4 mmHg Tricuspid Valve TR Vmax 2.8 m/s RAP (EST) 3 mmHg RVSP 34.6 mmHg TR Peak GR 31.6 mmHg Left Ventricle The left ventricle is normal size. GLS -21.0% There is normal LV segmental wall motion. There is normal left ventricular wall thickness. LVEF is 55-60%. 3D volume EF 59% Indeterminate diastolic dysfunction. Right Ventricle The right ventricle is normal size. The right ventricular systolic function is normal. Atria The left atrium is mildly dilated. The right atrium size is normal. Aortic Valve The aortic valve is normal in structure. No aortic regurgitation is present. There is no aortic valvular stenosis. Mitral Valve The mitral valve is normal in structure. There is trace of mitral valve regurgitation noted. There is no mitral valve stenosis. Tricuspid Valve The tricuspid valve is normal in structure. There is no tricuspid valve regurgitation noted. Pulmonic Valve The pulmonary valve is normal in structure. There is no pulmonic valvular regurgitation. Great Vessels The aortic root is normal in size. The IVC is normal in size and collapses >50% with inspiration. Pericardium There is no pericardial effusion. Other Information Quality : Adequate Conclusion LVEF is 55-60%. 3D volume EF 59% The aortic root is normal in size. There is no pericardial effusion. DICTATED BY: AMERICO GARCIA MD DATE: 03/11/25 1035 ELECTRONICALLY SIGNED BY: AMERICO GARCIA MD DATE: 03/11/25 1120 IMAGING REPORT Signed PATIENT: ALICIA SWEET MR#: [id number] : 1940 SEX: F AGE: 84 LOCATION: [facility] ORDER 30 STATUS: REG ER REPORT#: [id number] SERVICE 29 REASON: hard fall on the left side ORDERING PHYSICIAN: ADILSON WOMACK MD PROCEDURE: CXR1VW - CHEST 1VW EXAM: CR Chest, 1 View. CLINICAL HISTORY: hard fall on the left side COMPARISON: None provided. FINDINGS: LUNGS: There is no mass, infiltrate, or acute pulmonary abnormality. PLEURAL SPACES: No evidence of pleural effusion or pneumothorax. MEDIASTINUM: The cardiomediastinal silhouette is within normal limits. Moderate hiatal hernia BONES: No acute osseous abnormality. IMPRESSION: No acute cardiopulmonary pathology is evident. /[place] DICTATED BY: NEHEMIAS MCFARLAND MD DATE: 03/10/252213 ELECTRONICALLY SIGNED BY: NEHEMIAS MCFARLAND MD DATE: 03/10/252213 Signed PATIENT: ALICIA SWEET MR#: [id number] : 1940 SEX: F AGE: 84 LOCATION: [facility] ORDER 30 STATUS: [facility] REPORT#: [id number] SERVICE 29 REASON: hard fall on the left side ORDERING PHYSICIAN: ADILSON WOMACK MD PROCEDURE: KNEE 4V LT - KNEE 4+VWS LT EXAM: CR left knee, 3 View. CLINICAL HISTORY: hard fall on the left side COMPARISON: None provided. FINDINGS: Medial compartment predominant mild to moderate tricompartmental left knee joint osteoarthritis. Small knee joint effusion. Prepatellar and infrapatellar bursitis. No displaced fracture is appreciated. IMPRESSION: 1. No acute fracture identified. 2. Mild to moderate tricompartmental left knee osteoarthritis, predominantly in the medial compartment, with small joint effusion and bursitis. /[place] DICTATED BY: LUCIA JENKINS Jr., MD DATE: 03/10/252214 ELECTRONICALLY SIGNED BY: LUCIA JENKINS Jr., MD DATE: 03/10/252214 Assessment/Plan: ASSESSMENT: Status post mechanical fall injury POA Left parietal scalp hematoma POA Headache POA Chronic anemia POA Acute kidney injury POA Left knee pain Left middle cerebellar peduncle concern for acute ischemic change per CT POA Left frontal parietal pericranial soft tissue contusion with hematoma and emphysema toes changes per CT POA Hypertension POA Hyperlipidemia POA Discharge Instructions: You were admitted at [facility] for evaluation and treatment of head injury following fall. -Please continue your home medications as instructed. -Please take proper safety measures while walking -Follow up to Neurology within 2 weeks as your MRI revealed demyelinating lesion which may require further workup. -Follow up to Neurosurgery within [address] BIJAN GARCIA -Follow up to your PCP within 3 days Home Medications: Active Scripts Hydrocodone/Acetaminophen (Hydrocodon-Acetaminophen 5-325) 5 Mg-325 Mg Tablet, 1 TAB PO TIDP PRN for pain for 5 Days, #15 TAB 0 Refills Prov:CASPER MAYES MD 03/13/25 Reported Medications Oxybutynin Chloride (Oxybutynin Chloride ER) 15 Mg Tab.er.24, 1 TAB PO DAILY for 30 Days, #30 TAB 0 Refills 03/11/25 Atorvastatin Calcium (Atorvastatin Calcium) 40 Mg Tablet, 1 TAB PO HS for 30 Days, #30 TAB 0 Refills 06/21/24 Trospium Chloride (Trospium Chloride) 60 Mg Cap.er.24h, 1 CAP PO DAILY for 30 Days, #30 CAP 0 Refills 06/21/24 Ferrous Sulfate (Ferrous Sulfate) 325 Mg (65 Mg Iron) Ectab, 1 TAB PO BID for 30 Days, #60 TAB 0 Refills 06/21/24 Pantoprazole Sodium (Pantoprazole Sodium) 40 Mg Tablet.dr, 1 TAB PO BID for 30 Days, #30 TAB 0 Refills 06/21/24 Trazodone HCl (Trazodone HCl) 150 Mg Tablet, 1 TAB PO HS for 30 Days, #30 TAB 0 Refills 06/21/24 Metoprolol Tartrate (Metoprolol Tartrate) 25 Mg Tablet, 1 TAB PO BID for 30 Days, #60 TAB 0 Refills 06/21/24 Lisinopril (Lisinopril) 20 Mg Tablet, 1 TAB PO DAILY for 30 Days, #30 TAB 0 Refills 06/21/24 Discontinued Reported Medications Hydrocodone/Acetaminophen (Hydrocodon-Acetaminoph 7.5-325) 7.5 Mg-325 Mg Tablet, 1-2 TAB PO Q4HPRN PRN for pain for 5 Days, #60 TAB 0 Refills 06/21/24 New Medications: Hydrocodone/Acetaminophen (Hydrocodon-Acetaminophen 5-325) 5 Mg-325 Mg Tablet 1 TAB PO TIDP PRN for pain for 5 Days, #15 TAB 0 Refills Continued Medications: Atorvastatin Calcium (Atorvastatin Calcium) 40 Mg Tablet 1 TAB PO HS for 30 Days, #30 TAB 0 Refills Ferrous Sulfate (Ferrous Sulfate) 325 Mg (65 Mg Iron) Ectab 1 TAB PO BID for 30 Days, #60 TAB 0 Refills Lisinopril (Lisinopril) 20 Mg Tablet 1 TAB PO DAILY for 30 Days, #30 TAB 0 Refills Metoprolol Tartrate (Metoprolol Tartrate) 25 Mg Tablet 1 TAB PO BID for 30 Days, #60 TAB 0 Refills Oxybutynin Chloride (Oxybutynin Chloride ER) 15 Mg Tab.er.24 1 TAB PO DAILY for 30 Days, #30 TAB 0 Refills Pantoprazole Sodium (Pantoprazole Sodium) 40 Mg Tablet.dr 1 TAB PO BID for 30 Days, #30 TAB 0 Refills Trazodone HCl (Trazodone HCl) 150 Mg Tablet 1 TAB PO HS for 30 Days, #30 TAB 0 Refills Trospium Chloride (Trospium Chloride) 60 Mg Cap.er.24h 1 CAP PO DAILY for 30 Days, #30 CAP 0 Refills Time spent arranging discharge: 1-30 minutes ATTESTATION BY PHYSICIAN I have seen and examined the patient. I reviewed the documentation, medical decision making, and treatment plan as noted by the resident provider above. I agree with the findings and plan of care. Casper Mayes MD, SUNIL MD Mar 13, 2025 16:46
== END 2025-03-13 16:45 | disposition home or self-care (01) | DRG 605 ==
LOC: EDH 20:19 → EDHIP 23:37 → 2BH 03-11 01:23 → 2AH 03-11 18:25
PROVIDERS: ADMIT Internal Medicine; ATTEND Internal Medicine
DX: S00.03XA Contusion of scalp, initial encounter (principal); N17.9 Acute kidney failure, unspecified; I10 Essential (primary) hypertension; M17.12 Unilateral primary osteoarthritis, left knee; D63.8 Anemia in other chronic diseases classified elsewhere; E78.00 Pure hypercholesterolemia, unspecified; F32.A Depression, unspecified; M25.78 Osteophyte, vertebrae; M47.892 Other spondylosis, cervical region; G89.29 Other chronic pain; G31.89 Other specified degenerative diseases of nervous system; H53.8 Other visual disturbances; M25.462 Effusion, left knee; Z86.73 Personal history of transient ischemic attack (TIA), and cerebral infarction without residual deficits; Y99.8 Other external cause status; W07.XXXA Fall from chair, initial encounter; Y93.89 Activity, other specified; Y92.89 Other specified places as the place of occurrence of the external cause; Z82.5 Family history of asthma and other chronic lower respiratory diseases; Z82.3 Family history of stroke; Z82.49 Family history of ischemic heart disease and other diseases of the circulatory system; Z82.0 Family history of epilepsy and other diseases of the nervous system; Z79.899 Other long term (current) drug therapy
CPT/HCPCS: 36415; 70450; 70551; 71045; 72125; 73564; 76376; 80048; 80053; 80061; 81001; 82550; 82948; 83036; 83735; 84443; 84484; 85025; 85027; 85610; 85730; 87086; 93005; 93306; 93356; 96361; 96374; 96375; 99291; G0378; J1171; J2270; J2405; J3475; J3490

== ENCOUNTER → 2025-05-09 | Outpatient (CLI) | payer MEDICARE ==
[~2025-05-09] MED LIST changes: +HYDR-4060 PO; -HYDR-4064 PO; +OXYB15TA19 PO
--- NOTE | 2025-05-10 09:20 | HMCIMG ---
EXAM: Non-contrast CT examination of the Brain CLINICAL HISTORY: Head injury. TECHNIQUE: Thin collimated axial CT images of the brain were obtained with sagittal and coronal reformatted images also submitted. CT scan done according to ALARA (As Low as Reasonably Achievable). CONTRAST USED: None. COMPARISON: CT dated March 11, 2025. FINDINGS: There is generalized prominence of the sulci, gyri and cisternal spaces with mild dilatation of the ventricular system ??? suggestive of age-related diffuse neuro-parenchymal atrophy. Chronic ischemic changes in bilateral paraventricular deep white matter. Minimal residual soft tissue swelling within the scalp in the left frontal region. No acute cortical infarction, hemorrhage, mass or mass effect. No hydrocephalus or abnormal extra-axial fluid collections. The posterior fossa is unremarkable. The skull base and calvarium are intact. The included portions of the paranasal sinuses and mastoid air cells are clear. IMPRESSION: 1. No acute intracranial abnormality is present. 2. There is near complete resolution of the left frontoparietal soft tissue hematoma. 2. Diffuse age-related neuro-parenchymal atrophy with chronic ischemic changes in bilateral paraventricular deep white matter. Compared to the previous CT dated March 11, 2025, there is significant resolution of the soft tissue hematoma. Rest of the findings are unchanged. /[place]
== END | disposition home or self-care (01) ==
LOC: RAH 14:27
PROVIDERS: ATTEND Internal Medicine
DX: S09.90XD Unspecified injury of head, subsequent encounter (principal); I67.82 Cerebral ischemia; G31.9 Degenerative disease of nervous system, unspecified; G93.9 Disorder of brain, unspecified; X58.XXXD Exposure to other specified factors, subsequent encounter
CPT/HCPCS: 70450